=== PATIENT | male | born 1990 | race African-American/Black ===

== ENCOUNTER → 2024-11-20 | Outpatient (CLI) | payer MEDICAID, SELFPAY ==
--- NOTE | 2024-11-20 17:35 | RAD_ITS ---
PROCEDURE: CHEST PA AND LATERAL 11/20/2024 REASON FOR EXAM: ASTHMA TECHNIQUE: CHEST PA AND LATERAL COMPARISON: None. FINDINGS: The lungs are hyperexpanded. Mild bilateral peribronchial interstitial thickening. There is no demonstrated parenchymal abnormality. There is no demonstrated pleural abnormality. Normal heart and pericardium. Normal mediastinum and maeve. Normal visualized pulmonary arteries. Normal visualized aortic arch and descending thoracic aorta. Normal visualized thoracic spine. Normal visualized ribs, clavicles, and shoulders. There is no demonstrated abnormality of the visualized soft tissue structures of the upper abdomen. RAD/Chest PA and Lateral IMPRESSION: Hyperexpanded lungs. Mild bilateral peribronchial interstitial thickening, possibly secondary to hyp eractive airway disease. [facility]
== END | disposition home or self-care (01) ==
LOC: RAD 17:33
PROVIDERS: PCP Family Medicine
DX: J45.901 Unspecified asthma with (acute) exacerbation (principal)
CPT/HCPCS: 71046

== ENCOUNTER → 2024-12-06 | Outpatient (CLI) | payer MEDICAID, SELFPAY | END | disposition home or self-care (01) | PROVIDERS: PCP Family Medicine | DX: J45.909 Unspecified asthma, uncomplicated (principal) | CPT/HCPCS: 94060; 94726; 94729 ==

== ENCOUNTER → 2024-12-16 | Outpatient (CLI) | payer MEDICAID, SELFPAY ==
[2024-12-16 16:23] LABS: Hematocrit 44.6 % (40-54); Hemoglobin 14.9 g/dL (13.0-16.5); Immature Granulocytes Count 0.010 X10^3/uL (0.0-0.0); Mean Corp Hgb Conc 33.4 g/dL (32-36); Mean Corpuscular Volume 82.9 fL (80-94); Mean Platelet Vol. 10.0 fl (6.2-12.0); NRBC Flagged by Analyzer 0 % (0-5); Platelet Count 281 K/mm3 (150-450); RBC Distribution Width CV 13.2 % (11.6-14.6); RBC Distribution Width SD 39.7 fl (35.1-43.9); Red Blood Count 5.38 M/mm3 (4.6-6.2); White Blood Count 4.6 K/mm3 (4.4-11.0)
== END | disposition home or self-care (01) ==
PROVIDERS: PCP Family Medicine; Referring Provider Internal Medicine Critical Care Medicine; Visit Provider Internal Medicine Critical Care Medicine
DX: J45.909 Unspecified asthma, uncomplicated (principal)
CPT/HCPCS: 36415; 82785; 85025; 86003; 86037; 86606

== ENCOUNTER 2025-04-15 03:50 | Emergency (ER) | payer SELFPAY ==
[2025-04-15 03:54] VITALS: BP 142/94; PULSE 68; RESP 18; TEMP 36.6; O2SAT 100; BMI 29.0
--- NOTE | 2025-04-15 04:09 | ED.VIS.DENTA ---
HPI History of Present Illness Chief Complaint: Dental Informant: patient Narrative Narrative: Patient is a 34-year-old male with no significant PMHx presenting with odontalgia and facial discomfort. - Reports a broken tooth on the lower jaw, which occurred while eating soft food (orange chicken or malaysian bah). - Since the incident, has experienced severe pain preventing sleep for 3-4 days. - Describes a sensation of dryness extending from the side of the face to the jaw. - Unable to eat or drink due to pain. - Noted minor bleeding when brushing teeth. - Denies fever, discharge. - No known drug allergies. PFSH PFSH Medical History Alcohol abuse Home Medications ?Medication ?Instructions ?Recorded ?Last Taken ?Type albuterol sulfate 90 mcg/actuation 2 puff inhalation Q4-6H PRN 12/04/24 Unknown History aerosol inhaler (Ventolin HFA) shortness of breath or wheezing multivitamin (Daily Multi-Vitamin 1 tab PO QAM 12/04/24 Unknown History tablet) tiotropium bromide 1.25 2 puff inhalation Q24H #4 grams 12/16/24 Unknown Rx mcg/actuation mist for inhalation (Spiriva Respimat) montelukast 10 mg tablet 10 mg PO QDAY #30 tabs 12/17/24 Unknown Rx (Singulair) budesonide-formoterol HFA 160 2 puff inhalation BID #10.2 grams 01/03/25 Unknown Rx mcg-4.5 mcg/actuation aerosol inhaler (Symbicort) amoxicillin 500 mg tablet 500 mg PO TID #30 tabs 04/15/25 Unknown Rx omeprazole 20 mg capsule,delayed 20 mg PO DAILY 04/15/25 Unknown History release tramadol 50 mg tablet 50 mg PO Q6H PRN pain 3 days #12 04/15/25 Unknown Rx tabs Allergy/AdvReac Type Severity Reaction Status Date / Time No Known Allergies Allergy Verified 04/15/25 03:51 Family History Father Heart disease CVA (cerebral vascular accident) Cancer prostate Mother Hypertension Social History Smoking Status: Current every day smoker tobacco type: cigarettes alcohol intake: never substance use type: former substance user ROS ROS ED Constitutional Constitutional ED: Denies chills or fever(s) Eyes Eyes: Denies change in vision or double vision ENT ENT ED: Reports dental pain; Denies sinus pain or throat swelling Cardiovascular Cardiovascular: Denies chest pain or palpitations Respiratory/Chest Respiratory/Chest: Denies cough or dyspnea Integumentary Denies abscess or rash Neurologic Neurologic: Denies headache(s), paresthesias or weakness EXAM Physical Exam Const Vital Signs: 04/15/25 03:54 Temperature 97.8 F Temperature Source Oral Pulse Rate 68 Respiratory Rate 18 Blood Pressure 142/94 H Blood Pressure Mean 110 Pulse Ox 100 Oxygen Delivery Method Room Air Positive well nourished and well developed General Appearance ED: well developed and NAD HEENT HEENT Narrative: No external swelling or asymmetry. No trismus. Tender tooth #30 which has a filling within it and is fractured posteriorly. No discharge or bleeding. No abscess. Face and Sinus: sinuses nontender Throat: posterior oropharynx normal Eyes PERRL and EOMs intact bilaterally Neck no lymphadenopathy and supple Resp normal respiratory effort Neuro oriented x3 and CN's II-XII intact bilaterally Sensorium / Orientation: alert Gait (Neuro): normal gait Psych mental status grossly normal and thought process normal Skin no rashes or lesions noted and no wounds MDM MDM MDM Narrative Medical decision making narrative: Tooth number 30 has fractured with a posterior defect, and it appears to contain an amalgam filling. The tooth is very tender, with no bleeding or discharge, and there is no evidence of gingivitis, gingival abscess, or external swelling/asymmetry. Antibiotics may be helpful to decrease inflammation, in addition to NSAIDs and pain medication, which I will prescribe. In the meantime, I placed a Cavit temporary filling in the posterior defect. Although my tools were limited, the patient was amenable to this to help reduce his pain before he can see a dentist. Discharge Plan Triage Chief Complaint: Dental ED Provider: Igor Moreau Dx/Rx/DC Orders Clinical Impression: Pain due to dental caries Instructions: ED Dental Cavity Prescriptions: New tramadol 50 mg tablet 50 mg PO Q6H PRN (Reason: pain) 3 Days Qty: 12 0RF amoxicillin 500 mg tablet 500 mg PO TID Qty: 30 0RF No Action albuterol sulfate [Ventolin HFA] 90 mcg/actuation HFA aerosol inhaler 2 puff inhalation Q4-6H PRN (Reason: shortness of breath or wheezing) multivitamin [Daily Multi-Vitamin] Tablet 1 tab PO QAM Spiriva Respimat 1.25 mcg/actuation mist 2 puff inhalation Q24H Qty: 4 3RF montelukast [Singulair] 10 mg tablet 10 mg PO QDAY Qty: 30 3RF omeprazole 20 mg capsule,delayed release(DR/EC) 20 mg PO DAILY budesonide-formoterol [Symbicort] 160-4.5 mcg/actuation HFA aerosol inhaler 2 puff inhalation BID Qty: 10.2 6RF Primary Care Provider: Xiomara Man [facility] Referrals: Dentist,Your [STAFF PHYSICIAN, Dentistry] - As soon as possible Print Language: German Disposition Disposition: Home, Self Care
--- OUTSIDE RECORDS SUMMARY | 2025-04-15 04:17 | XMS RPT_ITS | CCD ---
Author Organization [facility] Care Team Providers Care Candy Rolling Machine Operator Name Role Phone [facility], Other Prima Care Provider Sarai LEAD RADIATION THERAPIST, Vickey Ring Primary Care Provider Sarai LEAD RADIATION THERAPIST, Vickey Ring Primary Care Provider Sarai LEAD RADIATION THERAPISTVickey Primary Care Provider SARAI, VICKEY RING Primary Care Unavailabl e KATHLEEN BELL Attending Unavailable SARAI, VICKEY RING Primary Care Unavailabl e DENISE CALIX Admitting Unavailable DENISE CALIX Referring Unavailable SARAI, VICKEY RING Primary Care Unavailabl e DENISE CALIX Attending Unavailable KATHLEEN BELL Referring Unavailable SARAI, VICKEY RING Primary Care Unavailabl KATHLEEN Agarwal Admitting Unavailable SARAI, VICKEY JHONATHAN Primary Care Unavailabl e SARAI, [facility] Primary Care Unavailabl e SARAI, [facility] Primary Care Unavailabl e Xiomara Man DO Primary Care Provider [phone] Beam COCOA BUTTER FILTER OPERATOR-CSouleymane Attending Provider [phone] Beam COCOA BUTTER FILTER OPERATOR-CSouleymane Referring Provider [phone] Dr. Shawn Mclean DO Attending Provider Xiomara Man DO Referring Provider Dr. Shawn Mclean DO Referring Provider FRANCISCO BEAULIEU Attending Unavailable SARAI, VICKEY JHONATHAN Primary Care UnavailCasandra Moeller Attending Provider Beam VSC, Zebulun Referring Unavailable Magda, Xiomara Primary Care Unavailable Shawn Mclean Attending Unavailable Beam VSC, Zebueda Attending Unavailable Beam VSC, Zebulun Referring Unavailable Magda, Xiomara Primary Care Unavailable Shawn Mclean Attending Unavailable Magda, Xiomara Primary Care Unavailable Magda, Xiomara Referring Unavailable Magda, Xiomara Primary Care Unavailable Magda, Xiomara Referring Unavailable Casandra De La Cruz Attending Unavailable Beam VSC, Zebueda Attending Unavailable Shawn Mclean Attending Unavailable Shawn Mclean Referring Unavailable Magda, Xiomara Primary Care Unavailable Allergies Allergy Classification Reported Allergen(s) Allergy Type Date of Onset Reaction(s) Facility (1 source) Unable to Assess Drug allergy (disorder) 01-17-2025 [facility] Repository Medications Current Medications Medication Drug Class(es) Dates Sig (Normalized) Sig (Original) [id number] 200 actuat albuterol 0.09 mg/actuat metered dose inhaler (20 sources) beta2-Adrenergic Agonist Start: 12-04-2024 Albuterol Sulfate (Ventolin Hfa) 90 mcg/actuation HFA aerosol inhaler Active 2 NMA INHALATION EVERY 4-6 HOURS as needed December 04, 2024 12:00am Start: 07-17-2024 End: 10-15-2024 take 2 puff(s) by inhalation every six hours as needed for wheezing albuterol (Ventolin HFA) 90 mcg/actuation inhaler Indications: Mild persistent asthma without complication Inhale 2 (two) puffs every 6 (six) hours as needed for wheezing or shortness of breath . 18 g 5 07/17/2024 10/15/2024 Active Start: 05-17-2023 End: 05-16-2024 albuterol (PROVENTIL) 2.5 mg /3 mL (0.083 %) nebulizer solution Indications: Mild persistent asthma without complication Take 3 mL (2.5 mg total) by nebulization every 6 (six) hours as needed for wheezing or shortness of breath . 150 mL 5 05/17/2023 Active Start: 05-17-2023 take 2 puff(s) by in halation every six hours as needed for wheezing albuterol (Ventolin HFA) 90 mcg/actuation inhaler Indications: Mild persistent asthma without complication Inhale 2 (two) puffs every 6 (six) hours as needed for wheezing or shortness of breath . 18 g 5 05/17/2023 Active Start: 01-27-2022 End: 01-27-2023 take 2.5 mg by inhalation every six hours as needed for wheezing albuterol (PROVENTIL) 2.5 mg /3 mL (0.083 %) nebulizer solution Take 3 mL (2.5 mg total) by nebulization every 6 (six) hours as needed for wheezing . 75 mL 12 01/27/2022 01/27/2023 Active Start: 01-27-2022 End: 02-26-2022 take 1-2 puff(s) by inhalation every four to six hours as needed for cough albuterol 90 mcg/actuation inhaler 1-2 puffs every 4-6 hours prn cough/wheeze/sob; dispense with spacer . 18 g 2 01/27/2022 Active Start: 04-01-2021 take 2 puff(s) by in halation every six hours as needed for wheezing albuterol (Ventolin HFA) 90 mcg/actuation inhaler Indications: Mild persistent asthma without complication Inhale 2 (two) puffs every 6 (six) hours as needed for wheezing or shortness of breath . 18 g 5 04/01/2021 Active Budesonide-Formoterol (15 sources) Corticosteroid, beta2-Adrenergic Agonist Start: 01-03-2025 Budesonide-Formoterol (Symbicort) 160-4.5 mcg/actuation HFA aerosol inhaler Active 2 NMA INHALATION TWICE A DAY 10.2 6 January 03, 2025 9:37am Start: 12-04-2024 End: 01-03-2025 Budesonide-Formoterol (Symbi kenia) 160-4.5 mcg/actuation HFA aerosol inhaler Discontinued 2 NMA INHALATION TWICE A DAY December 04, 2024 12:00am January 03, 2025 9:37am Start: 12-04-2024 Budesonide-For moterol (Symbicort) 160-4.5 mcg/actuation HFA aerosol inhaler Active 2 NMA INHALATION TWICE A DAY December 04, 2024 12:00am Start: 07-17-2024 take 2 puff(s) by in halation twice daily budesonide-formoteroL (Symbicort) 160-4.5 mcg/actuation inhaler Inhale 2 (two) puffs 2 (two) times a day . 1 each 5 07/17/2024 Active Start: 05-17-2023 End: 05-16-2024 take 2 puff(s) by inhalation twice daily budesonide-formoteroL (Symbicort) 160-4.5 mcg/actuation inhaler Indications: Mild persistent asthma without complication Inhale 2 (two) puffs 2 (two) times a day . 1 each 5 05/17/2023 05/16/2024 Active Start: 05-26-2021 take 2 puff(s) by in halation twice daily budesonide-formoteroL (Symbicort) 160-4.5 mcg/actuation inhaler Inhale 2 (two) puffs 2 (two) times a day . 1 each 5 05/26/2021 Active Start: 05-26-2021 End: 05-26-2022 take 2 puff(s) by inhalation twice daily budesonide-formoteroL (Symbicort) 160-4.5 mcg/actuation inhaler Inhale 2 (two) puffs 2 (two) times a day . 1 each 5 05/26/2021 05/26/2022 Active Start: 03-07-2017 SYMBICORT 160- 4.5 MCG/ACT Aerosol inhaler 24 hr buPROPion hydrochloride 150 mg extended release oral tablet (4 sources) Aminoketone Start: 12-04-2024 take 1 tablet by mouth once daily in the morning Bupropion Hcl (Wellbutrin Xl) 150 mg tablet extended release 24 hr Active 150 mg PO EVERY MORNING December 04, 2024 12:00am 12 hr dextromethorphan hydrobromide 30 mg / guaiFENesin 600 mg extended release oral tablet (1 source) Uncompetitive X-gmrtdf-U-asparta te Receptor Antagonist, Sigma-1 Agonist Start: 01-27-2022 End: 02-06-2022 take 1 tablet by mouth twice daily dextromethorphan-g uaiFENesin (Mucinex DM) 30-600 mg Tb12 Take 1 (one) tablet by mouth 2 (two) times a day for 10 days . 20 tablet 0 01/27/2022 02/06/2022 Active doxycycline hyclate 100 mg oral capsule (1 source) Tetracycline-class Drug Start: 01-17-2022 End: 01-24-2022 take 1 capsule by mouth twice daily doxycycline hyclate (VIBRAMYCIN) 100 MG capsule Indications: Penile discharge , Urethritis Take 1 (one) capsule (100 mg total) by mouth 2 (two) times a day for 7 days . 14 capsule 0 01/17/2022 01/24/2022 Active [id number] 0.3 ml EPINEPHrine 1 mg/ml auto-injector (1 source) alpha-Adrenergic Agonist, beta-Adrenergic Agonist, Catecholamine Start: 01-17-2025 Epinephrine (Epipen 2-Fernandez) 0.3 mg/0.3 mL auto-injector Active 0.3 mg IM every 5 to 15 minutes as needed for anaphylaxis 2 0 January 17, 2025 12:00am Asthma Unspecified asthma, uncomplicated do not exceed 3 doses per episode hydrOXYzine pamoate 50 mg oral capsule (5 sources) Antihistamine Start: 12-04-2024 take 1 capsule by mouth twice daily as needed Hydroxyzine Pamoate 50 mg capsule Active 50 mg PO TWICE A DAY as needed December 04, 2024 12:00am Start: 03-30-2017 take 1 tablet by vernell th every six hours as needed hydrOXYzine HCl 25 MG Tab tablet Take 1 tablet by mouth every 6 hours as needed for Anxiety. 16 tablet 0 03/30/2017 Active ibuprofen 600 mg oral tablet (3 sources) Nonsteroidal Anti-inflammatory Drug Start: 09-28-2020 End: 09-28-2020 take 1 tablet by mouth every six hours as needed ibuprofen 600 MG tablet Take 1 tablet by mouth every 6 hours as needed. 20 tablet 0 09/28/2020 09/28/2020 Discontinued (Reorder) inhalational spacing device inhaler (8 sources) Start: 01-27-2022 inhalational spacing device inhaler Use as instructed . 1 each 2 01/27/2022 Active metroNIDAZOLE 500 mg oral tablet (1 source) Nitroimidazole Antimicrobial Start: 01-17-2022 End: 01-17-2022 take 4 tablets by mouth once metroNIDAZOLE (FLAGYL) 500 MG tablet Indications: Penile discharge , Urethritis Take 4 (four) tablets (2,000 mg total) by mouth once for 1 dose . 4 tablet 0 01/17/2022 01/17/2022 Active montelukast 10 mg oral tablet (2 sources) Leukotriene Receptor Antagonist Start: 12-17-2024 take 1 tablet by mouth once daily Montelukast (Singulair) 10 mg tablet Active 10 mg PO daily 30 December 17, 2024 12:00am Multivitamin (Daily Multi-Vitamin) tablet (4 sources) Start: 12-04-2024 Multivitamin (Daily Multi-Vitamin) tablet Active 1 {tbl} PO EVERY MORNING December 04, 2024 12:00am omeprazole 20 mg delayed release oral capsule (4 sources) Proton Pump Inhibitor Start: 12-04-2024 take 1 capsule by mouth once daily Omeprazole 20 mg capsule,delayed release(DR/EC) Active 20 mg PO daily December 04, 2024 12:00am 12 hr orphenadrine citrate 100 mg extended release oral tablet (3 sources) Muscle Relaxant Start: 09-28-2020 End: 09-28-2020 take 1 tablet by mouth twice daily orphenadrine ER 100 MG Tab SR 12 HR Take 1 tablet by mouth 2 times daily. 14 tablet 0 09/28/2020 09/28/2020 Discontinued (Reorder) Start: 09-28-2020 orphenadrine E R (NORFLEX) tablet SR 100 mg polymyxin b 13565 unt/ml / trimethoprim 1 mg/ml ophthalmic solution (1 source) Dihydrofolate Reductase Inhibitor Antibacterial, Polymyxin-class Antibacterial Start: 03-25-2017 take 1 drop(s) into the eye(s) every four to six hours polymyxin b-trimethoprim 41769-0.1 UNIT/ML-% Solution ophthalmic solution instill 1 drop into left eye every 4 to 6 hours while awake for 7 days 0 03/25/2017 Active predniSONE 20 mg oral tablet (5 sources) Start: 01-27-2022 predniSONE (DELTASONE) 20 MG tablet Take 2 tablets once daily x 5 days with food . 10 tablet 0 01/27/2022 Active Start: 09-28-2020 End: 09-28-2020 take 2 tablets by mouth once daily predniSONE 20 MG tablet Take 2 tablets by mouth daily. 10 tablet 0 09/28/2020 09/28/2020 Discontinued (Reorder) Start: 09-28-2020 predniSONE (DE LTASONE) tablet 40 mg 60 actuat tiotropium 0.82532 mg/actuat inhalation spray (3 sources) Anticholinergic Start: 12-16-2024 take 1.25 ug by inhalation every twenty-four hours Tiotropium [place] (Spiriva Respimat) 1.25 mcg/actuation mist Active 2 NMA INHALATION Q24H 4 3 December 16, 2024 12:00am traZODone hydrochloride 50 mg oral tablet (4 sources) Serotonin Reuptake Inhibitor Start: 12-04-2024 take 1 tablet by mouth at bedtime as needed Trazodone 50 mg tablet Active 50 mg PO AT BEDTIME as needed December 04, 2024 12:00am Completed/Discontinued Medications Medication Drug Class(es) Dates Sig (Normalized) Sig (Original) cefTRIAXone 500 mg injection (2 sources) Cephalosporin Antibacterial Start: 01-17-2022 End: 01-17-2022 cefTRIAXone (ROCEPHIN) injection 500 mg Start: 01-17-2022 End: 01-17-2022 cefTRIAXone (ROCEPHIN) injec tion 500 mg dexamethasone phosphate 10 mg/ml injectable solution (4 sources) Corticosteroid Start: 09-04-2021 End: 09-04-2021 dexamethasone (DECADRON) injection 10 mg Start: 09-04-2021 End: 09-04-2021 dexamethasone (DECADRON) inj ection 10 mg Start: 09-04-2021 End: 09-04-2021 dexAMETHasone sodium phos (P F) injection 10 mg Start: 09-04-2021 End: 09-04-2021 dexAMETHasone sodium phos (P F) injection 10 mg 60 actuat formoterol fumarate 0.005 mg/actuat / mometasone furoate 0.2 mg/actuat metered dose inhaler (3 sources) Corticosteroid, beta2-Adrenergic Agonist End: 01-27-2022 take 2 puff(s) by inhalation twice daily mometasone-formoterol (Dulera) 200-5 mcg/actuation HFAA Inhale 2 puffs 2 (two) times a day . 0 01/27/2022 Discontinued (Therapy completed) Mometasone-For moterol (Dulera) 100-5 mcg/actuation HFA aerosol inhaler (4 sources) Start: 12-04-2024 End: 01-17-2025 Mometasone-Formoterol (Dulera) 100-5 mcg/actuation HFA aerosol inhaler Discontinued 2 NMA INHALATION TWICE A DAY December 04, 2024 12:00am January 17, 2025 2:15pm Start: 12-04-2024 Mometasone-For moterol (Dulera) 100-5 mcg/actuation HFA aerosol inhaler Active 2 NMA INHALATION TWICE A DAY December 04, 2024 12:00am Problems Active Problems Problem Classification Problem Date Documented Da te Episodic/Chronic Anxiety disorders (15 sources) Anxiety disorder, unspecified; Translations: [Anxiety disorder] Onset: 03-30-2017 06-13-2017 Chronic Asthma (20 sources) Mild persistent asthma; Translations: [Mild persistent asthma, uncomplicated] Onset: 06-13-2017 Resolved: 12-13-2017 12-13-2017 Chronic Asthma (2 sources) Asthma Fracture of upper limb (6 sources) Closed fracture of distal phalanx of little finger; Translations: [Nondisplaced fracture of distal phalanx of right little finger, initial encounter for closed fracture] Onset: 10-03-2023 10-03-2023 Episodic Genitourinary symptoms and ill-defined conditions (2 sources) Dysuria; Translations: [Dysuria] Episodic Nonspecific chest pain (1 source) Tight chest; Translations: [Other chest pain] Episodic Other acquired deformities (4 sources) Mallet finger; Translations: [Mallet finger of right finger(s)] 10-03-2023 Episodic Other acquired deformities (2 sources) Mallet finger of right finger(s); Translations: [Mallet finger of right finger(s)] Onset: 10-03-2023 Episodic Other circulatory disease (1 source) Nasal discharge; Translations: [Other specified symptoms and signs involving the circulatory and respiratory systems] Episodic Other connective tissue disease (1 source) Pain in right hand; Translations: [Pain in right hand] 11-24-2022 Episodic Other connective tissue disease (4 sources) Pain in finger of right hand; Translations: [Pain in right finger(s)] 10-03-2023 Episodic Other connective tissue disease (2 sources) Pain in right finger(s); Translations: [Pain in right finger(s)] Onset: 10-03-2023 Episodic Other lower respiratory disease (1 source) Cough; Translations: [Cough] Episodic Other nutritional; endocrine; and metabolic disorders (2 sources) Other disorders of plasma-protein metabolism, not elsewhere classified; Translations: [Other disorders of plasma-protein metabolism, not elsewhere classified] Onset: 06-01-2023 Chronic Substance-related disorders (20 sources) Nicotine dependence; Translations: [Nicotine dependence, unspecified, uncomplicated] Onset: 06-13-2017 06-13-2017 Chronic Urinary tract infections (1 source) Urethritis; Translations: [Other urethritis] Episodic Past or Other Problems Problem Classification Problem Date Documented Da te Episodic/Chronic Cardiac dysrhythmias (2 sources) Palpitations; Translations: [Palpitations] Onset: 03-30-2017 Episodic Immunizations and screening for infectious disease (5 sources) Suspected disease caused by 2019-nCoV; Translations: [Suspected COVID-19 virus infection] Onset: 07-26-2024 Episodic Mood disorders (2 sources) Mood disorders Onset: 07-17-2024 07-17-2024 Other connective tissue disease (2 sources) Pain in right hand; Translations: [Pain in right hand] Onset: 11-24-2022 Episodic Other gastrointestinal disorders (10 sources) Heartburn; Translations: [Heartburn] Onset: 06-13-2017 06-13-2017 Episodic Spondylosis; intervertebral disc disorders; other back problems (12 sources) Sciatica; Translations: [Sciatica, left side] Onset: 12-13-2017 Episodic Results Test Name Value Interpretation Reference Range Facility Pulmonary Visit Reporton Pulmonary Visit Report [facility] Pulmonary Medicine of [address] [place] [address] OFFICE VISIT Date of Service: 01/17/25 MR#: [id number] Acct: [id number] Name: MELANIE LAGOS Rep #: [id number] : 1990 Provider: Casandra De La Cruz NP Age/Sex: 34/M Location: [facility].PM[facility] Status: Signed Assessment and Plan Assessment and Plan (1) Asthma: Status: Chronic Qualifiers: Asthma severity: moderate Asthma persistence: persistent Asthma complication type: uncomplicated Qualified Code(s): J45.40 - Moderate persistent asthma, uncomplicated Plan: The patient presented today for the evaluation of asthma, initially diagnosed in childhood, which has been suboptimally controlled over the last 3 months. The patient is currently utilizing Symbicort and has received excellent benefit with adding Spiriva. He does have albuterol HFA and nebulized at home for symptom relief and is encouraged to continue to use these on an as-needed basis. He is encouraged to use singular as well for worsening allergy symptoms. Given the high sensitivities on the recent RAST panel I have referred to [facility] at this time. CBC with differential did not show the presence of peripheral eosinophilia, IgE was not elevated, and Aspergillus antibodies, ANCA were within normal limits. Alpha-1 screening was negative. The patient should notify this practice if he has worsening respiratory symptoms. NIOX is not elevated today. There is no need to utilize oral prednisone at this time. He will be provided with epi pen due to his potential for trigger with upcoming canoe trip. (2) Nicotine dependence, cigarettes, uncomplicated: Status: Chronic Plan: Complete smoking cessation is encouraged today, he is not quite ready to proceed at this time. I have also encouraged him to avoid the cigarettes that he knows worsen his respiratory symptoms. He understands that this practice is willing to assist him when he is ready to quit smoking. Orders: Orders NIOX Today J45.909 - Unspecified asthma, uncomplicated Referrals Allergy Immunology J45.909 - Unspecified asthma, uncomplicated Medications: New epinephrine (EpiPen 2-Fernandez) do not exceed 3 doses per episode 0.3 mg (0.3 mL) IM Q5-15M PRN 2 ea 0RF anaphylaxis J45.909 - Unspecified asthma, uncomplicated Plan Details Follow Up: 4 to 6 months (LMR) HPI HPI Comments Details: The patient is a 34-year-old male who presents to the office today for follow-up of asthma. He is ambulatory currently on room air. Since last office visit he has not required oral prednisone or antibiotics for his breathing. He has not been seen in urgent care or has not had any hospitalizations since last follow-up. The patient reported that he was initially diagnosed with asthma sometime around 5 years old. While his asthma was previously controlled, approximately 3 months ago, the patient became ill with a questionable cold, and since that time, he has been struggling from a respiratory perspective. The patient recently relocated from [place] to [place]. He does not currently keep any animals as pets in his home environment. 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 The patient has an approximate 9-pack-year smoking history and continues to smoke 0.25 packs of cigarettes per day. In addition to his personal smoking history, he did grow up in a smoking household. The patient also indicated that he previously used to smoke marijuana daily, but has since quit. He does report a history of seasonal allergic rhinitis. He denies shortness of breath currently. He denies cough. He reports that he will wheeze if he smokes too many cigarettes. He indicates that chest tightness will occur at random when he is smoking. He is currently smoking a pack every 2 to 3 days. He is using Spiriva and Symbicort. He has not required his rescue inhaler but if he smokes too many cigarettes he will have chest tightness and will use it at that time. At last visit Spiriva was added to his regimen and he reports a significant improvement in his shortness of breath since adding Spiriva. He has been able to reduce his frequency of albuterol HFA. He does not have difficulty with side effects from Symbicort. He is drinking water after using the inhaler. He does use Singulair on occasion but reports that it dries up his sinus passages when he utilizes this medication. He has Claritin to use as needed. He is currently in sobriety for the last 6 months and that he will soon consider smoking cessation. He was last on prednisone for breathing in October. Prior to that he was struggling with his breathing from August to October. Pulmonary function studies completed in November 2024 demonstrated a partially reversible very severe large airways obstructive ventilatory def (more content not included)... Normal [facility] Allergen Resp. Area 5on 11-27 ALTERNARIA TEN 8.68 kU/L Abnormal Class IV [facility] Comment on above: Order Comment: Reaso n for Exam: ASthma Performed By: #### L 5500.0700, L3300.1200, L3500.3600, L3200.1600, L100.0100 #### [facility] Laboratory [address] [place], [address] RAMIRO, WHITE 25.70 kU/L Abnormal Class V [facility] Comment on above: Order Comment: Reaso n for Exam: ASthma Performed By: #### L 5500.0700, L3300.1200, L3500.3600, L3200.1600, L100.0100 #### [facility] Laboratory [address] [place], [address] ASPERGILLUS FUM 1.88 kU/L Abnormal Class III [facility] Comment on above: Order Comment: Reaso n for Exam: ASthma Performed By: #### L 5500.0700, L3300.1200, L3500.3600, L3200.1600, L100.0100 #### [facility] Laboratory [address] [place], [place], [facility] BERMUDA GRASS 14.10 kU/L Abnormal Class IV [facility] Comment on above: Order Comment: Reaso n for Exam: ASthma Performed By: #### L 5500.0700, L3300.1200, L3500.3600, L3200.1600, L100.0100 #### [facility] Laboratory [address] [place], [address] BIRCH 51.00 kU/L Abnormal Class V [facility] Comment on above: Order Comment: Reaso n for Exam: ASthma Performed By: #### L 5500.0700, L3300.1200, L3500.3600, L3200.1600, L100.0100 #### [facility] Laboratory [address] [place], [address] BLACK WALNUT 40.40 kU/L Abnormal Class V [facility] Comment on above: Order Comment: Reaso n for Exam: ASthma Performed By: #### L 5500.0700, L3300.1200, L3500.3600, L3200.1600, L100.0100 #### [facility] Laboratory [address] [place], [place], [id number] CAT HAIR/DANDER 41.40 kU/L Abnormal Class V [facility] Comment on above: Order Comment: Reaso n for Exam: ASthma Performed By: #### L 5500.0700, L3300.1200, L3500.3600, L3200.1600, L100.0100 #### [facility] Laboratory [address] [place], [place], [id number] CLADOSPOR HERB 0.50 kU/L Abnormal Class I [facility] Comment on above: Order Comment: Reaso n for Exam: ASthma Performed By: #### L 5500.0700, L3300.1200, L3500.3600, L3200.1600, L100.0100 #### [facility] Laboratory [address] [place], [place], [id number] COCKROACH,AMER <0.10 Normal Class 0 [facility] Comment on above: Order Comment: Reaso n for Exam: ASthma Performed By: #### L 5500.0700, L3300.1200, L3500.3600, L3200.1600, L100.0100 #### [facility] Laboratory [address] [place], [place], [id number] COMMENT Comment Normal . [facility] Comment on above: Order Comment: Reaso n for Exam: ASthma Result Comment: Marycarmen cheema of Specific IgE Class Description of Class ----- < 0.10 0 Negative 0.10 - 0.31 0/I Equivocal/Low 0.32 - 0.55 I Low 0.56 - 1.40 II Moderate 1.41 - 3.90 III High 3.91 - 19.00 IV Very High 19.01 - 100.00 V Very High >100.00 Very High Performed By: #### L 5500.0700, L3300.1200, L3500.3600, L3200.1600, L100.0100 #### [facility] [address] [place], [address] COTTONWOOD 7.86 kU/L Abnormal Class IV [facility] Comment on above: Order Comment: Reaso n for Exam: ASthma Performed By: #### L 5500.0700, L3300.1200, L3500.3600, L3200.1600, L100.0100 #### [facility] [address] [place], [address] D FARINAE MITE 0.43 kU/L Abnormal Class I [facility] Comment on above: Order Comment: Reaso n for Exam: ASthma Performed By: #### L 5500.0700, L3300.1200, L3500.3600, L3200.1600, L100.0100 #### [facility] [address] [place], [place], [facility] D PTERONYSSINUS 0.41 kU/L Abnormal Class I [facility] Comment on above: Order Comment: Reaso n for Exam: ASthma Performed By: #### L 5500.0700, L3300.1200, L3500.3600, L3200.1600, L100.0100 #### [facility] [address] [place], [place], [facility] DOG EPITHELIA 7.61 kU/L Abnormal Class IV [facility] Comment on above: Order Comment: Reaso n for Exam: ASthma Performed By: #### L 5500.0700, L3300.1200, L3500.3600, L3200.1600, L100.0100 #### [facility] [address] [place], [address] ELM,AMER WHITE 19.10 kU/L Abnormal Class V [facility] Comment on above: Order Comment: Reaso n for Exam: ASthma Performed By: #### L 5500.0700, L3300.1200, L3500.3600, L3200.1600, L100.0100 #### [facility] [address] [place], [address] IMMUNOGLOB E 334 IU/mL Normal 6-495 [facility] Comment on above: Order Comment: Reaso n for Exam: ASthma Performed By: #### L 5500.0700, L3300.1200, L3500.3600, L3200.1600, L100.0100 #### [facility] [address] [place], [address] MAPLE/BOX ELDER 17.30 kU/L Abnormal Class IV [facility] Comment on above: Order Comment: Reaso n for Exam: ASthma Performed By: #### L 5500.0700, L3300.1200, L3500.3600, L3200.1600, L100.0100 #### [facility] [address] [place], [address] [place] 3.77 kU/L Abnormal Class III [facility] Comment on above: Order Comment: Reaso n for Exam: ASthma Performed By: #### L 5500.0700, L3300.1200, L3500.3600, L3200.1600, L100.0100 #### [facility] [address] [place], [address] Mouse Urine <0.10 Normal Class 0 [facility] Comment on above: Order Comment: Reaso n for Exam: ASthma Performed By: #### L 5500.0700, L3300.1200, L3500.3600, L3200.1600, L100.0100 #### [facility] [address] [place], [address] MULBERRY,WHITE 6.27 kU/L Abnormal Class IV [facility] Comment on above: Order Comment: Reaso n for Exam: ASthma Performed By: #### L 5500.0700, L3300.1200, L3500.3600, L3200.1600, L100.0100 #### [facility] [address] [place], [address] OAK, WHITE 34.40 kU/L Abnormal Class V [facility] Comment on above: Order Comment: Reaso n for Exam: ASthma Performed By: #### L 5500.0700, L3300.1200, L3500.3600, L3200.1600, L100.0100 #### [facility] [address] [place], [address] PECAN 39.60 kU/L Abnormal Class V [facility] Comment on above: Order Comment: Reaso n for Exam: ASthma Performed By: #### L 5500.0700, L3300.1200, L3500.3600, L3200.1600, L100.0100 #### [facility] [address] [place], [address] PEN NOTATUM 0.34 kU/L Abnormal Class I [facility] Comment on above: Order Comment: Reaso n for Exam: ASthma Performed By: #### L 5500.0700, L3300.1200, L3500.3600, L3200.1600, L100.0100 #### [facility] [address] [place], [address] PIGWEED, ROUGH 10.10 kU/L Abnormal Class IV [facility] Comment on above: Order Comment: Reaso n for Exam: ASthma Performed By: #### L 5500.0700, L3300.1200, L3500.3600, L3200.1600, L100.0100 #### [facility] [address] [place], [address] RAGWEED SH/COM 28.70 kU/L Abnormal Class V [facility] Comment on above: Order Comment: Reaso n for Exam: ASthma Performed By: #### L 5500.0700, L3300.1200, L3500.3600, L3200.1600, L100.0100 #### [facility] [address] [place], [address] NAURUAN THISTLE 4.09 kU/L Abnormal Class IV [facility] Comment on above: Order Comment: Reaso n for Exam: ASthma Performed By: #### L 5500.0700, L3300.1200, L3500.3600, L3200.1600, L100.0100 #### [facility] [address] [place], [place], [id number] SHEEP SORREL 12.40 kU/L Abnormal Class IV [facility] Comment on above: Order Comment: Reaso n for Exam: ASthma Result Comment: Perf ormed at: [facility] [address] [id number] Garbage Stoker: Korin Chan MD, Phone: [phone] Performed By: #### L 5500.0700, L3300.1200, L3500.3600, L3200.1600, L100.0100 #### [facility] [address] [place], [place], [id number] SYCAMORE, AMER 9.69 kU/L Abnormal Class IV [facility] Comment on above: Order Comment: Reaso n for Exam: ASthma Performed By: #### L 5500.0700, L3300.1200, L3500.3600, L3200.1600, L100.0100 #### [facility] [address] [place], [place], [id number] SARMAD GRASS 18.70 kU/L Abnormal Class IV [facility] Comment on above: Order Comment: Reaso n for Exam: ASthma Performed By: #### L 5500.0700, L3300.1200, L3500.3600, L3200.1600, L100.0100 #### [facility] [address] [place], [place], [id number] ANCAon 12-21-2024 Atypical pANCA <1:20 Normal Neg:<1:20 [facility] Comment on above: Result Comment: The atypical pANCA pattern has been observed in a significant percentage of patients with ulcerative colitis, primary sclerosing cholangitis and autoimmune hepatitis. Performed By: #### L 5500.0700, L3300.1200, L3500.3600, L3200.1600, L100.0100 #### [facility] [address] [place], [address] Cytoplasmic Ab <1:20 Normal Neg:<1:20 [facility] Comment on above: Performed By: #### L 5500.0700, L3300.1200, L3500.3600, L3200.1600, L100.0100 #### [facility] [address] [place], [address] Perinuclear Ab. <1:20 Normal Neg:<1:20 [facility] Comment on above: Result Comment: The presence of positive fluorescence exhibiting P-ANCA or C-ANCA patterns alone is not specific for the diagnosis of Adam's Granulomatosis (WG) or microscopic polyangiitis. Decisions about treatment should not be based solely on ANCA IFA results. The [employer] ANCA [employer] Consensus recommends follow up testing of positive sera with both MT- 3 and MPO-ANCA enzyme immunoassays. As many as 5% serum samples are positive only by EIA. Ref. AM J Clin Pathol 1999;111:507-513. Performed By: #### L 5500.0700, L3300.1200, L3500.3600, L3200.1600, L100.0100 #### [facility] [address] [place], [address] Aspergillus Antibodieson Asp. flavus Negative Normal Neg:<1:1 [facility] Comment on above: Performed By: #### L 5500.0700, L3300.1200, L3500.3600, L3200.1600, L100.0100 #### [facility] [address] [place], [address] Asp. fumigatus Negative Normal Neg:<1:1 [facility] Comment on above: Performed By: #### L 5500.0700, L3300.1200, L3500.3600, L3200.1600, L100.0100 #### [facility] [address] [place], [address] Asp. niger Negative Normal Neg:<1:1 [facility] Comment on above: Performed By: #### L 5500.0700, L3300.1200, L3500.3600, L3200.1600, L100.0100 #### [facility] [address] [place], [place], [id number] Immunoglobulin Jakub 5 IMMUNOGLOB E QN 393 IU/mL Normal 6-495 [facility] Comment on above: Result Comment: Perf ormed at: - [facility] [address] [id number] Garbage Stoker: Daniel Wolfe PhD, Phone: [phone] Performed at: - [facility] [id number] Garbage Stoker: Korin Chan MD, Phone: [phone] Performed By: #### L 5500.0700, L3300.1200, L3500.3600, L3200.1600, L100.0100 #### [facility] [address] [place], [place], [id number] Absolute lymphocyte countOrd ered By: Shawn Mclean on 12-16-2024 Lymphocytes Auto (Unsp spec) [#/Vol] 1.47 10*3/uL 0.83-4.51 [facility] Absolute neutrophil countOrd ered By: Shawn Mclean on 12-16-2024 Neutrophils (Bld) [#/Vol] 2.5 10*3/uL 2.0-7.7 [facility] Automated lymphocyte count a s percentage of total leukocytesOrdered By: hSawn Mclean on 12-16-2024 Lymphocytes/100 WBC Auto (Unsp spec) 32.2 % 19-41 [facility] Basophil percentageOrdered B y: Shawn Mclean on 12-16-2024 Basophils/100 WBC (Bld) 0.9 % 0-1 [facility] CBC W/Diff, Automatedon 11-27 Absolute Lymph 1.47 X10 3/uL Normal 0.83-4.51 [facility] Comment on above: Performed By: #### L 5500.0700, L3300.1200, L3500.3600, L3200.1600, L100.0100 #### [facility] [address] [place], [address] Absolute Neut 2.5 X10 3/uL Normal 2.0-7.7 [facility] Comment on above: Performed By: #### L 5500.0700, L3300.1200, L3500.3600, L3200.1600, L100.0100 #### [facility] [address] [place], [address] Basophils/100 WBC (Bld) 0.9 % Normal 0-1 [facility] Comment on above: Performed By: #### L 5500.0700, L3300.1200, L3500.3600, L3200.1600, L100.0100 #### [facility] [address] [place], [address] Eosinophils/100 WBC (Bld) 2.8 % Normal 0-5 [facility] Comment on above: Performed By: #### L 5500.0700, L3300.1200, L3500.3600, L3200.1600, L100.0100 #### [facility] [address] [place], [address] Erythrocyte distribution width (RBC) [Ratio] 13.2 % Normal 11.6-14.6 [facility] Comment on above: Performed By: #### L 5500.0700, L3300.1200, L3500.3600, L3200.1600, L100.0100 #### [facility] [address] [place], [address] Hematocrit (Bld) [Volume fraction] 44.6 % Normal 40-54 [facility] Comment on above: Performed By: #### L 5500.0700, L3300.1200, L3500.3600, L3200.1600, L100.0100 #### [facility] [address] [place], [address] Hemoglobin (Bld) [Mass/Vol] 14.9 g/dL Normal 13.0-16. 5 [facility] Comment on above: Performed By: #### L 5500.0700, L3300.1200, L3500.3600, L3200.1600, L100.0100 #### [facility] [address] [place], [address] IG% 0.200 Normal 0.0-0.9 [facility] Comment on above: Result Comment: IG% - Immature Granulocytes (promyelocytes, myelocytes and metamyelocytes) > 1% indicates that a LEFT SHIFT is Present. Performed By: #### L 5500.0700, L3300.1200, L3500.3600, L3200.1600, L100.0100 #### [facility] [address] [place], [address] Lymphocytes/100 WBC (Bld) 32.2 % Normal 19-41 [facility] Comment on above: Performed By: #### L 5500.0700, L3300.1200, L3500.3600, L3200.1600, L100.0100 #### [facility] [address] [place], [address] MCH (RBC) [Entitic mass] 27.7 pg Normal 27.0-32.0 [facility] Comment on above: Performed By: #### L 5500.0700, L3300.1200, L3500.3600, L3200.1600, L100.0100 #### [facility] [address] [place], [address] MCHC (RBC) [Mass/Vol] 33.4 g/dL Normal 32-36 [facility] Comment on above: Performed By: #### L 5500.0700, L3300.1200, L3500.3600, L3200.1600, L100.0100 #### [facility] [address] [place], [address] MCV (RBC) [Entitic vol] 82.9 fL Normal 80-94 [facility] Comment on above: Performed By: #### L 5500.0700, L3300.1200, L3500.3600, L3200.1600, L100.0100 #### [facility] [address] [place], [address] Monocytes/100 WBC (Bld) 10.1 % High 0-10 [facility] Comment on above: Performed By: #### L 5500.0700, L3300.1200, L3500.3600, L3200.1600, L100.0100 #### [facility] [address] [place], [address] Neutrophils/100 WBC (Bld) 53.8 % Normal 47-70 [facility] Comment on above: Performed By: #### L 5500.0700, L3300.1200, L3500.3600, L3200.1600, L100.0100 #### [facility] [address] [place], [address] Nucleated RBC (Bld) [#/Vol] 0 10*3/uL Normal 0-5 [facility] Comment on above: Performed By: #### L 5500.0700, L3300.1200, L3500.3600, L3200.1600, L100.0100 #### [facility] [address] [place], [address] Platelet mean volume (Bld) [Entitic vol] 10.0 fL Normal 6.2-12.0 [facility] Comment on above: Performed By: #### L 5500.0700, L3300.1200, L3500.3600, L3200.1600, L100.0100 #### [facility] [address] [place], [address] Platelets (Bld) [#/Vol] 281 10*3/uL Normal 150-450 [facility] Comment on above: Performed By: #### L 5500.0700, L3300.1200, L3500.3600, L3200.1600, L100.0100 #### [facility] [address] [place], [address] RBC (Bld) [#/Vol] 5.38 10*6/uL Normal 4.6-6.2 [facility] Comment on above: Performed By: #### L 5500.0700, L3300.1200, L3500.3600, L3200.1600, L100.0100 #### [facility] [address] [place], [address] RDW SD 39.7 fl Normal 35.1-43.9 [facility] Comment on above: Performed By: #### L 5500.0700, L3300.1200, L3500.3600, L3200.1600, L100.0100 #### [facility] [address] [place], [address] WBC (Bld) [#/Vol] 4.6 10*3/uL Normal 4.4-11.0 [facility] Comment on above: Performed By: #### L 5500.0700, L3300.1200, L3500.3600, L3200.1600, L100.0100 #### [facility] [address] [place], [address] Eosinophil percentageOrdered By: Shawn Mclean on 12-16-2024 Eosinophils/100 WBC (Bld) 2.8 % 0-5 [facility] Erythrocyte distribution wid th ratioOrdered By: Shawn Mclean on 12-16-2024 Erythrocyte distribution width (RBC) [Ratio] 13.2 % 11.6-14.6 [facility] Erythrocyte distribution wid th standard deviationOrdered By: Shawn Mclean on 12-16-2024 Erythrocyte distribution width (RBC) [Ratio] 39.7 fl 35.1-43.9 [facility] Hematocrit Auto (Bld) [Volum e fraction]Ordered By: Shawn Mclean on 12-16-2024 Hematocrit (Bld) [Volume fraction] 44.6 % 40-54 [facility] Hemoglobin measurementOrdere d By: Shawn Mclean on 12-16-2024 Hemoglobin (Bld) [Mass/Vol] 14.9 g/dL 13.0-16. 5 [facility] IgEOrdered By: Shawn Mclean o n 12-16-2024 IgE 334 IU/mL 6-495 [facility] Immature granulocytes/100 WB C Auto (Bld)Ordered By: Shawn Mclean on 12-16-2024 Immature granulocytes/100 WBC (Bld) 0.200 % 0.0-0.9 [facility] Comment on above: IG% - Immature Granu locytes (promyelocytes, myelocytes and metamyelocytes) > 1% indicates that a LEFT SHIFT is Present. MCV (mean corpuscular volume ) determinationOrdered By: Shawn Mclean on 12-16-2024 MCV (RBC) [Entitic vol] 82.9 fL 80-94 [facility] Mean corpuscular hemoglobin (MCH) determinationOrdered By: Shawn Mclean on 12-16-2024 MCH (RBC) [Entitic mass] 27.7 pg 27.0-32.0 [facility] Mean corpuscular hemoglobin concentration (MCHC) determinationOrdered By: Shawn Mclean 12-16-2024 MCHC (RBC) [Mass/Vol] 33.4 g/dL 32-36 [facility] Mean platelet volume determi nationOrdered By: Shawn Mclean 12-16-2024 Platelet mean volume (Bld) [Entitic vol] 10.0 fL 6.2-12.0 [facility] Monocyte percentageOrdered B y: Shawn Mclean on 12-16-2024 Monocytes/100 WBC (Bld) 10.1 % High 0-10 [facility] Neutrophil percentageOrdered By: Shawn Mclean on 12-16-2024 Neutrophils/100 WBC (Bld) 53.8 % 47-70 [facility] No Panel InformationOrdered By: Shawn Mclean on 12-16-2024 RAST Comment Comment . [facility] Comment on above: Levels of Specific I gE Class Description of Class ----- < 0.10 0 Negative 0.10 - 0.31 0/I Equivocal/Low 0.32 - 0.55 I Low 0.56 - 1.40 II Moderate 1.41 - 3.90 III High 3.91 - 19.00 IV Very High 19.01 - 100.00 V Very High >100.00 Very High Nucleated red blood cell per centageOrdered By: Shawn Mclean on 12-16-2024 Nucleated RBC/100 WBC (Bld) [Ratio] 0 % 0-5 [facility] Platelet countOrdered By: Anderson on 12-16-2024 Platelets (Bld) [#/Vol] 281 10*3/uL 150-450 [facility] Pulmonary Visit Reporton Pulmonary Visit Report [facility] [place] [address] [place] [address] OFFICE VISIT Date of Service: 12/16/24 MR#: [id number] Acct: [id number] Name: MELANIE LAGOS Rep #: [id number] : 1990 Provider: Dr. Shawn Mclean DO Age/Sex: 34/M Location: [facility] Status: Signed Assessment and Plan Assessment and Plan (1) Asthma: Status: Chronic Plan: The patient presented today for the evaluation of asthma, initially diagnosed in childhood, which has been suboptimally controlled over the last 3 months. The patient is currently utilizing Symbicort and as needed albuterol, but reports frequent use of his rescue inhaler to achieve additional symptom relief. The patient does have a normal nitric oxide level at today's office visit. However, in light of his ongoing symptoms, we will plan to start him on Spiriva Respimat in addition to his Symbicort. Daily Singulair will also be initiated. In the interim, we will obtain CBC with differential to evaluate for peripheral eosinophilia, along with IgE, Aspergillus antibodies, ANCA and RAST profile. Lastly, given the pattern noted on PFTs, alpha-1 screening will also be completed today. The patient will have short interval follow-up in approximately 1 month to discuss the results of his testing and assess his symptom response to therapy. Result: Oral exhaled NO (ppb): 9 Normal: 5-20 ppb (Adult) High Normal/Increased: 20-35 ppb (Adult). Moderately raised exhaled nitric oxide may indicate underlying inflammation, but notes that cold and influenza can raise exhaled nitric oxide in some patients have higher baseline levels than others. High: >35 ppb (Adult). Indicative of ongoing eosinophilic inflammation. Symptomatic patient likely to respond to steroids. Possible causes include: Poor compliance, recent allergen exposure, steroid dose inadequate, and steroid resistance. (2) Nicotine dependence, cigarettes, uncomplicated: Status: Chronic Plan: I personally spent 4 minutes discussing the deleterious effects of continued tobacco use with the patient, including modalities which could be utilized to achieve a smoke-free lifestyle. Orders: Orders Aspergillus Antibodies 12/16/24 J45.909 - Unspecified asthma, uncomplicated CBC W/Diff, Automated 12/16/24 J45.909 - Unspecified asthma, uncomplicated Immunoglobulin E 12/16/24 J45.909 - Unspecified asthma, uncomplicated ANCA 12/16/24 J45.909 - Unspecified asthma, uncomplicated Allergen Resp. Area 5 12/16/24 J45.909 - Unspecified asthma, uncomplicated NIOX 12/16/24 J45.909 - Unspecified asthma, uncomplicated Alpha One Screening Test 12/16/24 J45.909 - Unspecified asthma, uncomplicated Medications: New tiotropium bromide 1.25 mcg/actuation (Spiriva Respimat) 2 puffs inhalation Q24H 4 grams 3RF HPI HPI Comments Details: The patient is a 34-year-old male who presents to the clinic today in referral for the evaluation of asthma. The patient reported that he was initially diagnosed with asthma sometime around 5 years old. While his asthma was previously controlled, approximately 3 months ago, the patient became ill with a questionable cold, and since that time, he has been struggling from a respiratory perspective. The patient recently relocated from [place] to [place]. He is currently prescribed Symbicort and as needed albuterol. He indicated that he is utilizing his rescue inhaler on a near daily basis. His current symptoms include shortness of breath and intermittent chest tightness. He does not currently keep any animals as pets in his home environment. 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 The patient has an approximate 9-pack-year smoking history and continues to smoke 0.25 packs of cigarettes per day. In addition to his personal smoking history, he did grow up in a smoking household. The patient also indicated that he previously used to smoke marijuana daily, but has since quit. He does report a history of seasonal allergic rhinitis. He was last treated with corticosteroids approximately 1 month ago. He denies any fevers, chills or night sweats. 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 Intake Vital Signs 12/16/24 11:19 Height 6 ft Weight: 218 lb BMI 29.5 BP 126/87 H Blood Pressure Location Lt brachial Position Sitting Respiration 16 Pulse 71 Pulse Source Monitor Temp 97.5 F L Temperature Source Temporal Artery Pulse Oximetry (%) 97 Oxygen Delivery Method room air Intake Visit Reasons: Asthma Principal Bioinformatics Specialist Required: No DME Vendor: N/a Accompanied by: Self (more content not included)... Normal [facility] RBC Auto (Bld) [#/Vol]Ordere d By: Shawn Mclean on 12-16-2024 RBC (Bld) [#/Vol] 5.38 10*6/uL 4.6-6.2 [facility] Serum Citizen Of [place] sycamore IgE antibody assay (units/volume)Ordered By: Shawn Mclean on 12-16-2024 Citizen [place] IgE Qn (S) 9.69 kU/L High Class IV [facility] Serum Aspergillus flavus ant ibody detection by immunodiffusionOrdered By: Shawn Mclean on 12-16-2024 A. flavus Ab Immune diff Ql (S) Negative Neg:<1:1 [facility] Serum Aspergillus fumigatus IgE antibody assay (units/volume)Ordered By: Shawn Mclean on 12-16-2024 A. fumigatus IgE Qn (S) 1.88 kU/L High Class III [facility] Serum Aspergillus fumigatus antibody detection by immunodiffusionOrdered By: Shawn Mclean on 12-16-2024 A. fumigatus Ab Immune diff Ql (S) Negative Neg:<1:1 [facility] Serum Aspergillus niger anti body detection by immunodiffusionOrdered By: Shawn Mclean on 12-16-2024 A. niger Ab Immune diff Ql (S) Negative Neg:<1:1 [facility] Serum Bermuda grass IgE anti body assay (units/volume)Ordered By: Shawn Mclean on 12-16-2024 Bermuda grass IgE Qn (S) 14.10 kU/L High Class IV [facility] Serum Cladosporium herbarum IgE antibody assay (units/volume)Ordered By: Shawn Mclean on 12-16-2024 C. herbarum IgE Qn (S) 0.50 kU/L High Class I [facility] Serum Dermatophagoides ptero nyssinus specific IgE antibody assay (units/volume)Ordered By: Shawn Mclean on 12-16-2024 house dust mite IgE Qn (S) 0.41 kU/L High Class I [facility] Serum Fraxinus americana IgE antibody assay (units/volume)Ordered By: Shawn Mclean on 12-16-2024 White Ramiro IgE Qn (S) 25.70 kU/L High Class V [facility] Serum Rumex acetosella IgE a ntibody assay (units/volume)Ordered By: Shawn Mclean on 12-16-2024 [place] IgE Qn (S) 12.40 kU/L High Class IV [facility] Comment on above: Performed at: [address] [id number] Director: Korin Chan MD, Phone: [phone] Serum black walnut IgE antib nam assay (units/volume)Ordered By: Shawn Mclean on 12-16-2024 Black [place] IgE Qn (S) 40.40 kU/L High Class V [facility] Serum cat dander specific Ig E antibody assayOrdered By: Shawn Mclean on 12-16-2024 Serum cat dander specific IgE antibody assay 41.40 kU/L High Class V [facility] Serum classic neutrophil cyt oplasmic antibody assay (units/volume)Ordered By: Shawn Mclean on 12-16-2024 Neutrophil cytoplasmic Ab.classic Qn (S) <1:20 titer Neg:<1:20 [facility] Serum cottonwood IgE antibod y assay (units/volume)Ordered By: Shawn Mclean on 12-16-2024 Arthur IgE Qn (S) 7.86 kU/L High Class IV [facility] Serum dog epithelium IgE ant ibody assay (units/volume)Ordered By: Shawn Mclean on 12-16-2024 Dog epithelium IgE Qn (S) 7.61 kU/L High Class IV [facility] Serum perinuclear neutrophil cytoplasmic antibody titer by immunofluorescenceOrdered By: Shawn Mclean on 12-16-2024 Neutrophil cytoplasmic Ab.perinuclear IF (S) [Titer] <1:20 titer Neg:<1:20 [facility] Comment on above: The presence of posi tive fluorescence exhibiting P-ANCA orC-ANCA patterns alone is not specific for the diagnosis ofWegener's Granulomatosis (WG) or microscopic polyangiitis.Decisions about treatment should not be based solely onANCA IFA results. The International ANCA Group Consensusrecommends follow up testing of positive sera with both MT-3 and MPO-ANCA enzyme immunoassays. As many as 5% serumsamples are positive only by EIA. Ref. AM J Clin Taymoh0179;111:507-513. Serum sarmad IgE antibody a ssay (units/volume)Ordered By: Shawn Mclean on 12-16-2024 Sarmad IgE Qn (S) 18.70 kU/L High Class IV [facility] Serum white elm IgE antibody assay (units/volume)Ordered By: Shawn Mclean on 12-16-2024 White [place] IgE Qn (S) 19.10 kU/L High Class V [facility] Serum white mulberry IgE ant ibody assay (units/volume)Ordered By: Shawn Mclean on 12-16-2024 White mulberry IgE Qn (S) 6.27 kU/L High Class IV [facility] White blood cell (WBC) count Ordered By: Shawn Mclean on 12-16-2024 WBC (Bld) [#/Vol] 4.6 10*3/uL 4.4-11.0 [facility] Chest PA and Lateralon 11-20 Chest PA and Lateral [facility] Services [address] [place], [place] [address] Chest PA and Lateral MR#: [id number] Acct: [id number] Name: MELANIE LAGOS Rep #: [id number] : 1990 M 34 From: Arti taylor MD PCP: Xiomara Man DO Status: REG CLI Study: Chest PA and Lateral Date of Exam: 11/20/24 Exam# [id number] Ordering Dr: Souleymane Awad [facility] [place] 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 FINDINGS: The lungs are hyperexpanded. Mild bilateral peribronchial interstitial thickening. There is no demonstrated parenchymal abnormality. There is no demonstrated pleural abnormality. Normal heart and pericardium. Normal mediastinum and maeve. Normal visualized pulmonary arteries. Normal visualized aortic arch and descending thoracic aorta. Normal visualized thoracic spine. Normal visualized ribs, clavicles, and shoulders. There is no demonstrated abnormality of the visualized soft tissue structures of the upper abdomen. RAD/Chest PA and Lateral IMPRESSION: Hyperexpanded lungs. Mild bilateral peribronchial interstitial thickening, possibly secondary to hyperactive airway disease. Reading Location: [place] [address] CC: Xiomara Man DO; Souleymane [facility] [place] BUTTER FILTER OPERATOR-C [employer] Worker: Signed Normal [facility] CBC (INCLUDES DIFF/PLT)on Basophils (Bld) [#/Vol] 0.032 10*3/uL Normal 0-200 [facility] Comment on above: Performed By: #### 5 12, 6399, 4848, 54064, 8472, 86566 #### [facility] [address], [address] Parts Identification Technician: Brayden Serrano MD Basophils/100 WBC (Bld) 1.0 % Normal [facility] Comment on above: Performed By: #### 5 12, 6399, 4848, 97973, 8472, 53172 #### [facility] [address], [address] [place] [address] Parts Identification Technician: Brayden Serrano MD Eosinophils (Bld) [#/Vol] 0.285 10*3/uL Normal 15-500 [facility] Comment on above: Performed By: #### 5 12, 6399, 4848, 09952, 8472, 06353 #### [facility] [place] [address] Parts Identification Technician: Brayden Serrano MD Eosinophils/100 WBC (Bld) 8.9 % Normal [facility] Comment on above: Performed By: #### 5 12, 6399, 4848, 91004, 8472, 47041 #### [facility] [place] [address] Parts Identification Technician: Brayden Serrano MD Erythrocyte distribution width (RBC) [Ratio] 12.6 % Normal 11.0-15.0 [facility] Comment on above: Performed By: #### 5 12, 6399, 4848, 33833, 8472, 22583 #### [facility]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 Instructions: MELANIE LAGOS has been given these follow-up instructions: Laboratory Orders: Name: Status: Comprehensive Metabolic Panel Completed CBC with Differential Completed Alcohol (Ethanol) Level Completed Drug Abuse Screen 8 Urine Completed Coronavirus (COVID-19/SARS-CoV-2) RAPID Completed GFRaa Completed GFRbb Completed Radiology Orders: None Ordered Diagnostic Tests: None Ordered Procedure(s) and Patient Education(s) : EMERGENCY SERVICES MEDICATION LIST Lista de Medicaciones de los Servicios de Emergencia Name MELANIE LAGOS MRN [facility]-[id number] [facility]# [id number] PLEASE READ THE FOLLOWING REGARDING YOUR MEDICATIONS Based on the information available during your visit we have given you the medication instructions below. Continue taking medications you took prior to your visit unless you have been told to change. Please share this information with your own doctor. Carry a list of your medications with you in case of an emergency. Update it when medications are stopped, doses are changed, or new medications (including zlcj-xhi-altrzyj products) are added. If you have any questions, check with your doctor. Por la informaci??n disponible ileana collins visita, las instrucciones de medicaci??n aparecen debajo. Favor de continuar tomando las medicaciones Ud. tho?? antes de collins visita por lo menos que hay cambios. Favor de compartir esta informaci??n con collins medico. Lleva shawn lista de medicaciones consigo por yoana de emergenc??a. Actualiza la lista cuando Ud. jhonny de anna las medicaciones, si cambian las dosis, o si hay nuevas medicaciones a??adidas (incluyendo medicaciones vendidas sin prescripci??n). Favor de preguntar a collins medico por cualquier carlitos. THESE ARE THE MEDICATIONS YOU SHOULD BE TAKING budesonide-formoterol (Symbicort 160/4.5 MDI) 2 Puff(s) Inhalation Twice a day. MEDICATIONS GIVEN DURING MEDICAL VISIT lorazepam 1 mg last dose given on 08/20/2020 at 11:45 Route: By Mouth nicotine 14 mg last dose given on 08/20/2020 at 23:35 Route: TransDermal *Remove Old Patch Before Applying New Patch* Remove if patient to go for MRI and replace once patient returns from MRI lorazepam 1 mg last dose given on 08/20/2020 at 23:35 Route: By Mouth As Needed for Agitation or Anxiety haloperidol 5 mg last dose given on 08/21/2020 at 15:00 Route: Intramuscular lorazepam 2 mg last dose given on 08/21/2020 at 15:00 Route: Intramuscular . ziprasidone 20 mg last dose given on 08/21/2020 at 15:15 Route: Intramuscular Max 40 mg PER DAY NON-MEDICATION PRESCRIPTION SCHEDULING PHONE NUMBER: MEDICATION CHANGE DETAILS (Not your Final Home Medication List) During the course of your visit, your home medication list was updated with the most current information. The details of those changes are shown below: NEW MEDICATIONS None UPDATED MEDICATIONS None UNCHANGED MEDICATIONS Other Medications budesonide-formoterol (Symbicort 160/4.5 MDI) 2 Puff(s) Inhalation Twice a day. Comment STOP TAKING THESE MEDICATIONS None DO NOT TAKE UNTIL YOU TALK TO YOUR DOCTOR None [address] [address] Emergency Department Discharge Instructions Name: MELANIE LAGOS Current Date: 08/21/2020 15:53:59 : 1990 Primary Physician: Physician, PCP Unknown We would like to thank you for choosing [facility] for your emergency medical needs. We examined and treated you today on an emergency basis only. This was not a substitute for, or an effort to provide, complete medical care. In most cases, you must let your doctor (or the doctor we referred you to) check you again. Tell your doctor about any new or lasting problems. We cannot recognize and treat all injuries or illnesses in one emergency department visit. After you leave, you should follow the directions attached. Instructions for obtaining X-rays: When following up with your doctor or a bone doctor, you may need to take copies of your x-rays that were done in the Emergency Department. If you didn't receive these upon your discharge from the emergency department, please call . When the final report becomes available and it is reviewed, the emergency department will attempt to contact you if there are any changes in your instructions. It is important that you leave accurate information with us on how to contact you. IF you cannot be contacted, YOU must contact the follow-up doctor that you were assigned to make sure that the final official x-ray report does not require a change in your treatment. Instructions for obtaining medical records: If you need a copy of your medical records for follow-up, please contact the Health Information Management Department at . Their office hours are 8 AM- 4:30 PM, Monday through Monday. Please note: Results are not immediately available. Please allow a minimum of 48 hours for documentation and results. If you were prescribed an antibiotic: Antibiotics are life-saving drugs and they need to be used properly. Your team might change your antibiotic because test results show that a different antibiotic would be better to treat your infection. Like all medications, antibiotics have side effects. Some can be serious. This includes the risk of getting an antibiotic-resistant infection later, which may be difficult to treat. Remember to take your antibiotics as prescribed. If you have any questions please talk to your healthcare team. Seatbelts: There is no doubt that seatbelts save lives. Every day, people without seatbelts have more serious injuries. Have everyone buckle up, using age appropriate seatbelts or car seats, to reduce their risk of injury. Smoking: If you do smoke, we encourage you to stop. Smoking affects all aspects of your health and the health of those around you. [facility] offers many resources to help with smoking cessation. Call the [place] Tobacco Quit Line at 6-021-CKAL-NOW ( ). High blood pressure: Your screening blood pressure today was 129 mm Hg / 84 mm Hg. Hypertension (high blood pressure) is blood pressure over 120/80. People with hypertension should contact their primary care provider within 30 days to follow up. Check your patient portal for additional blood pressure information. Immunizations: Immunization is a way to protect against deadly infections. Discuss this with your child's automotive service assistant, or Public Health Department. Your family practice doctor can determine if you need pneumonia or flu vaccine. The [facility] Department can be reached at . Substance Abuse Program: Concerns with addiction to alcohol, benzodiazepines (Ativan or Xanax) and Opiates (Heroin, Percocet, OxyContin, Methadone or Fentanyl)? [facility] offers an inpatient Substance Abuse Program to help treat the symptoms associated with medical detoxification of addictive substances. The new program offers care for non- adults (18 and older) looking to break the chain to addictive chemicals. The Substance Abuse Program is a voluntary inpatient admission and it starts with a pre-screening phone call to a social media editor. During the call, goals and objectives for recovery and how the patient will transition to outpatient care will be established. Please call [phone] to get help today. Domestic Violence: If you are a victim of domestic violence (physical, verbal, or emotional), you are not alone. Discuss this with your physician or a friend and call the [place] Domestic Violence Hotline or [place] Domestic Violence Hotline for assistance and support. You are the most important factor in your recovery. Follow the provided instructions carefully. Take your medications as prescribed. Most importantly, see a doctor again as discussed. If you have problems that we have not discussed, call or visit your doctor right away. If you do not have a primary care physician, we have provided one for you to follow up with. When you call for an appointment, please inform them that you were seen in the emergency department and the date of your visit. If you are unable to reach your doctor and are still experiencing problems, return to the emergency department. For assistance finding a primary care physician, call the Physician Referral Line at [phone] ([phone]). Suicide Hotline: Your mental and emotional well-being is important. If you are in a mental health crisis or are having thoughts of suicide, please call the [facility] suicide hotline, anytime day or night, at 6-431-817-KLJR (2131). Community Cardiovascular Technologist: You may be contacted by your local fire department for a follow up visit from a community reconnaissance man. The community reconnaissance man can help with a home safety check; follow up care, and general home care management. myHealth: With [employer] online patient portal you can check your hospital medical information any time, review and keep track of prescriptions, quickly access radiology and basic lab results, review all of your immunizations, allergies and medical history. In addition you can view your account balances and make payments online as well as manage a [employer] account for another adult such as spouse, parent or friend. Based on the tests ordered, there may be a delay in results posting to the patient portal. It's easy to sign up for [employer]: 1. Visit [employer] 2. Click on ??[place] for [employer]' 3. Verify your identity by entering your last name and date of (MM/DD/YYYY) 4. You'll be asked to set up a username and password. 5. Next, you'll create three security questions. Be sure to supply answers that are not easy for others to guess or discover. 6. If all information (first name, last name and date of ) matches what we have on file, we'll then send a PIN to your phone that you'll be asked to enter. 7. When your identity is verified, you'll be able to access your patient record. 8. Once all of this is complete and you've successfully activated your account, you'll be redirected to the [employer] login page. Login and check to see your results. Questions? For help with account enrollment, call [employer] Customer Support toll-free at [phone]. Pharmacy Information: Below is a list of 24 hour pharmacies that we are aware of. We suggest that you call the specific pharmacy for their hours before traveling to a location. Hours may vary on holidays. [facility] [place] [address] [place], [place] [address] [address] [place], [place] [address] [phone] [address] [place] [address] [address] [place], [place] [address] [address] [place], [place] [address] Take all medications as directed. If you need prescription assistance, contact the following agencies: ?? Partnership for Prescription Assistance at or www.pparx.org ?? [place] at or www.[place]estrx.org ?? www.[employer].com is a site with many valuable coupons Patient Education Materials MELANIE LAGOS has been given the following patient education materials: <><><><><><><><><><>< ><><><><><><><><><><> <><><><><> Patient Visit Summary Signature MELANIE LAGOS has been given the following list of patient education materials, prescriptions and follow-up instructions: DEMOND Crowley BRENDAN T, have received the above patient education materials/instruction s and have verbalized understanding: Date Time Patient Signature Date Time Provider Signature Normal [facility] Alcohol (Ethanol) Levelon Ethanol [Mass/Vol] mg/dL Normal 0.00-0.00 [facility] Comment on above: Performed By: #### 2 4323-8, 01325-9, 44080-0t7, 37010-3 #### [facility] [address], [place] CBC with Differentialon 07-28 Basophils (Bld) [#/Vol] 0.00 thou/mcL Normal 0.00-0.20 [facility] Comment on above: Performed By: #### 5 7021-8 #### [facility] [address], [place] Basophils/100 WBC (Bld) 1.2 % Normal 0.0-2.0 [facility] Comment on above: Performed By: #### 5 7021-8 #### [facility] [address], [place] Eosinophils (Bld) [#/Vol] 0.20 thou/mcL Normal 0.00-0. 70 [facility] Comment on above: Performed By: #### 5 7021-8 #### [facility] [address], [place] Eosinophils/100 WBC (Bld) 5.9 % Normal 0.0-7.0 [facility] Comment on above: Performed By: #### 5 7021-8 #### [address] Erythrocyte distribution width (RBC) [Entitic vol] 14.0 % Normal 11.0-14.8 [facility] Comment on above: Performed By: #### 5 7021-8 #### [address] Hematocrit (Bld) [Volume fraction] 45.9 % Normal 39.0-49.0 [facility] Comment on above: Performed By: #### 5 7021-8 #### [address] Hemoglobin (Bld) [Mass/Vol] 15.4 g/dL Normal 13.5-17. 5 [facility] Comment on above: Performed By: #### 5 7021-8 #### [address] Lymphocytes (Bld) [#/Vol] 0.90 thou/mcL Low 1.00-4. 80 [facility] Comment on above: Performed By: #### 5 7021-8 #### [address] Lymphocytes/100 WBC (Bld) 23.4 % Normal 22.0-44.0 [facility] Comment on above: Performed By: #### 5 7021-8 #### [address] MCH (RBC) [Entitic mass] 30.1 Picograms Normal 27.0-34 .0 [facility] Comment on above: Performed By: #### 5 7021-8 #### [address] MCHC (RBC) [Mass/Vol] 33.6 g/dL Normal 32.0-36.0 [facility] Comment on above: Performed By: #### 5 7021-8 #### [facility] [address], [place] MCV (RBC) [Entitic vol] 89.4 fL Normal 80.0-97.0 [facility] Comment on above: Performed By: #### 5 7021-8 #### [facility] [address], [place] Monocytes (Bld) [#/Vol] 0.50 thou/mcL Normal 0.00-0.90 [facility] Comment on above: Performed By: #### 5 7021-8 #### [facility] [address], [place] Monocytes/100 WBC (Bld) 12.3 % High 0.0-12.0 [facility] Comment on above: Performed By: #### 5 7021-8 #### [facility] [address], [place] Neutrophils (Bld) [#/Vol] 2.10 thou/mcL Normal 1.80-7. 70 [facility] Comment on above: Performed By: #### 5 7021-8 #### [facility] [address], [place] Neutrophils/100 WBC (Bld) 57.2 % Normal 40.0-70.0 [facility] Comment on above: Performed By: #### 5 7021-8 #### [facility] [address], [place] Platelet mean volume (Bld) [Entitic vol] 7.9 fL Normal 6.2-12.1 [facility] Comment on above: Performed By: #### 5 7021-8 #### [facility] [address], [place] Platelets (Bld) [#/Vol] 201 thou/mcL Normal 142-424 [facility] Comment on above: Performed By: #### 5 7021-8 #### [facility] [address], [place] RBC (Bld) [#/Vol] 5.14 million/mcL Normal 4.30-5.70 [facility] Comment on above: Performed By: #### 5 7021-8 #### [facility] [address], [place] WBC (Bld) [#/Vol] 3.7 thou/mcL Low 4.6-10.2 [facility] Comment on above: Performed By: #### 5 7021-8 #### [facility] [address], [place] Comprehensive Metabolic Pane ivana 08-20-2020 Albumin [Mass/Vol] 4.8 g/dL Normal 3.5-4.8 [facility] Comment on above: Performed By: #### 2 4323-8, 68939-8, 24409-3d3, 64157-9 #### [facility] [address], [place] ALP [Catalytic activity/Vol] 62 Units/L Normal 32-91 [facility] Comment on above: Performed By: #### 2 4323-8, 39661-8, 72903-2r8, 58024-7 #### [facility] [address], [place] ALT [Catalytic activity/Vol] 26 Units/L Normal 7-52 [facility] Comment on above: Result Comment: Mirna jarrell note: Change in reference range for ALT occurred on 04/09/20 at [facility], [facility], [facility], and [facility]. Performed By: #### 2 4323-8, 03861-7, 67077-2w1, 98771-2 #### [facility] [address], [place] Anion gap [Moles/Vol] 7.0 mmol/L Normal 6.0-18.0 [facility] Comment on above: Performed By: #### 2 4323-8, 38747-9, 39615-2p4, 43917-7 #### [facility] [address], [place] AST [Catalytic activity/Vol] 34 Units/L Normal 15-41 [facility] Comment on above: Performed By: #### 2 4323-8, 87527-8, 14534-3v4, 37931-4 #### [facility] [address], [place] Bilirubin [Mass/Vol] 1.1 mg/dL Normal 0.3-1.2 [facility] Comment on above: Performed By: #### 2 4323-8, 64857-4, 40434-2g6, 84917-2 #### [facility] [address], [place] Calcium [Mass/Vol] 9.2 mg/dL Normal 8.9-10.3 [facility] Comment on above: Performed By: #### 2 4323-8, 93239-5, 06130-3v5, 15367-8 #### [facility] AT [facility] [address], [place] Chloride [Moles/Vol] 103 mmol/L Normal 98-107 [facility] Comment on above: Performed By: #### 2 4323-8, 18633-1, 14063-6s2, 54863-9 #### [facility] AT [facility] [address], [place] CO2 [Moles/Vol] 26 mmol/L Normal 22-32 [facility] Comment on above: Performed By: #### 2 4323-8, 21714-2, 21250-5u9, 62031-6 #### [facility] [address], [place] Creatinine [Mass/Vol] 0.97 mg/dL Normal 0.60-1.30 [facility] Comment on above: Performed By: #### 2 4323-8, 04103-7, 46037-6e1, 73875-0 #### [facility] [address], [place] Glucose [Mass/Vol] 86 mg/dL Normal 70-99 [facility] Comment on above: Result Comment: U pdated ADA Reference Range A normal fasting glucose concentration is less than 100 mg/dL. An impaired fasting glucose concentration is 100-125 mg/dL. A provisional diagnosis of diabetes mellitus can be made when a fasting glucose concentration is greater than 125 mg/dL. Performed By: #### 2 4323-8, 24767-8, 22551-4k2, 49923-4 #### [facility] [address], [place] Potassium [Moles/Vol] 4.4 mmol/L Normal 3.6-5.1 [facility] Comment on above: Performed By: #### 2 4323-8, 54006-6, 19829-0c8, 12901-9 #### [facility] [address], [place] Protein [Mass/Vol] 7.0 g/dL Normal 6.1-7.9 [facility] Comment on above: Performed By: #### 2 4323-8, 93636-5, 01498-1b3, 40636-4 #### [facility] [address], [place] Sodium [Moles/Vol] 136 mmol/L Normal 136-145 [facility] Comment on above: Performed By: #### 2 4323-8, 38505-4, 15293-7d0, 95196-3 #### [facility] [address], [place] Urea nitrogen (BldV) [Mass/Vol] 9 mg/dL Normal 8-20 [facility] Comment on above: Performed By: #### 2 4323-8, 43114-4, 17140-8c6, 36680-6 #### [facility] [address], [place] Coronavirus (COVID-19/SARS-C oV-2) RAPIDon 08-20-2020 Device Identifier ID NOW COVID-19_[employer] [place], [facility]. EUA Normal [facility] Comment on above: Performed By: #### 9 4532-9x2 #### [facility] [address] [place] [id number] Employed in healthcare No Normal [facility] Comment on above: Performed By: #### 9 4532-9x2 #### [facility] [address] [place] [address] First test No [facility] Comment on above: Performed By: #### 9 4532-9x2 #### [facility] [address] [place] [address] ICU No [facility] Comment on above: Performed By: #### 9 4532-9x2 #### [facility] [address] [place] [address] Illness or injury onset date and time UNKNOWN [facility] Comment on above: Performed By: #### 9 4532-9x2 #### [facility] [address] [place] [address] Patient was hospitalized because of this condition No [facility] Comment on above: Performed By: #### 9 4532-9x2 #### [facility] [address] [place] [address] status NotPreg [facility] Comment on above: Performed By: #### 9 4532-9x2 #### [facility] [address] [place] [address] Resides in congregate care setting No [facility] Comment on above: Performed By: #### 9 4532-9x2 #### [facility] [address] [place], [place] [id number] SARS-CoV-2 NOTDET [facility] Comment on above: Result Comment: This test was performed via the [employer] ID NOW COVID-19 assay and has been authorized by FDA under an Emergency Use Authorization (EUA). The assay is validated for nasopharyngeal (COCOA BUTTER FILTER OPERATOR), nasal, and oropharyngeal (OP) direct swabs. The limit of detection of the assay is approximately 125 genome equivalence/mL; however, detection of SARS-CoV-2 may be affected by the sample collection and transport methods, patient factors (e.g., presence of symptoms, and/or stage of infection), and a negative result does not rule out the possibility of infection. For updated information, refer to the Center for Disease Control website: www.cdc.gov/coronavirus. Performed By: #### 9 4532-9x2 #### [facility] [address] [place], [place] [id number] Symptomatic as defined by CDC No Normal [facility] Comment on above: Performed By: #### 9 4532-9x2 #### [facility] [address] [place] [address] Drug Abuse Screen 8 Urineon 08-20-2020 Amphetamines Ql (U) Negative Normal [facility] Comment on above: Performed By: #### 1 2286-1 #### [facility] [address], [place] Barbiturates Screen Ql (U) Negative Normal [facility] Comment on above: Performed By: #### 1 2286-1 #### [facility] [address], [place] Benzodiazepines cutoff Screen (U) [Mass/Vol] Negative Normal [facility] Comment on above: Performed By: #### 1 2286-1 #### [facility] [address], [place] Cocaine Ql (U) Positive Abnormal [facility] Comment on above: Result Comment: Conf irmatory testing available upon request. Performed By: #### 1 2286-1 #### [facility] [address], [place] Interpretation and review of laboratory results Negative Normal [facility] Comment on above: Performed By: #### 1 2286-1 #### [facility] [address], [place] Methadone Screen Ql (U) Negative Normal NEGA TIVE-N EGATIVE [facility] Comment on above: Performed By: #### 1 2286-1 #### [facility] [address], [place] Opiates Screen Ql (U) Negative Normal [facility] Comment on above: Result Comment: INTE RPRETATION TABLE FOR SAP8 URINE DRUG SCREEN PRESUMPTIVE POSITIVE CUT-OFF VALUES (NG/ML) TEST POSITIVE CUT-OFF VALUES(NG/ML) Amphetamine 1000 Barbiturate 200 Benzodiazepines 200 Cannabinoids 50 Cocaine 300 Methadone 300 Opiates 300 Oxycodone 100 All drugs identified should be considered presumptive positives. Presumptive Positive Screens can be confirmed by a reference lab upon request. ALL DRUG SCREEN RESULTS ARE FOR MEDICAL PURPOSES ONLY. Performed By: #### 1 2286-1 #### [facility] [address], [place] Tetrahydrocannabinol Screen Ql (U) Positive Abnormal [facility] Comment on above: Result Comment: Conf irmatory testing available upon request. Performed By: #### 1 2286-1 #### [facility] [address], [place] GFRaaon 08-20-2020 GFR/1.73 sq M predicted among blacks MDRD (S/P/Bld) [Vol rate/Area] mL/min/{1.73_m2} Normal [facility] Comment on above: Result Comment: The MDRD equation has not been validated for those over 70 years, women, patients with serious co-morbid conditions, or with extremes of body size, muscle mass of nutritional status. Performed By: #### 2 4323-8, 83425-6, 88200-9c6, 74616-8 #### [facility] [address], [place] GFRbbon 08-20-2020 GFR/1.73 sq M predicted among non-blacks MDRD (S/P/Bld) [Vol rate/Area] mL/min/{1.73_m2} Normal [facility] Comment on above: Performed By: #### 2 4323-8, 95911-5, 13452-4f9, 95799-3 #### [facility] [address], [place] ED PROVIDERon 03-30-2017 [facility] NOTES Normal [facility] NOT[facility] Normal [facility] Vital Signs Date Time Vital Sign Value Performing Clinician Facility 01-17-2025 06:30-0400 Body mass index (BMI) [Ratio] 29.4 kg/m2 Xiomara Man DO Work Phone: [facility] 01-17-2025 06:30-0400 Body temperature 97.5 [degF] Xiomara Magda DO Work Phone: 7(905)823-340354 [place] [address] 01-17-2025 06:30-0400 Body weight 98.42 kg Xiomara Magda DO Work Phone: 8(148)065-480854 [place] [address] 01-17-2025 06:30-0400 Diastolic blood pressure 90 mm[Hg] Xiomara Magda DO Work Phone: 7(568)252-544854 [place] [address] 01-17-2025 06:30-0400 Heart rate 70 /min Xiomara Magda DO Work Phone: 4(738)902-612054 [place] [address] 01-17-2025 06:30-0400 Respiratory rate 20 /min Xiomara Magda DO Work Phone: 1(642)336-000854 [place] [address] 01-17-2025 06:30-0400 SaO2% (BldA) [Mass fraction] 96 % Xiomara Magda DO Work Phone: 4(008)987-645254 [place] [address] 01-17-2025 06:30-0400 Systolic blood pressure 140 mm[Hg] Xiomara Magda DO Work Phone: 6(943)362-254054 [place] [address] 12-16-2024 11:19-0400 Body height 182.88 cm Xiomara Magda DO Work Phone: 9(945)550-008654 [place] [address] 12-16-2024 11:19-0400 Body mass index (BMI) [Ratio] 29.5 kg/m2 Xiomara Magda DO Work Phone: 6(526)228-029754 [place] [address] 12-16-2024 11:19-0400 Body temperature 97.5 [degF] Xiomara Magda DO Work Phone: 8(377)169-110954 [place] [address] 12-16-2024 11:19-0400 Body weight 98.88 kg Xiomara Magda DO Work Phone: 3(888)065-359454 [place] [address] 12-16-2024 11:19-0400 Diastolic blood pressure 87 mm[Hg] Xiomara Magda DO Work Phone: 2(419)441-497254 [place] [address] 07-21-2025 11:19-0400 Heart rate 71 /min Xiomara Magda DO Work Phone: [facility] 12-16-2024 11:19-0400 Respiratory rate 16 /min Xiomara Magda DO Work Phone: [facility] 12-16-2024 11:19-0400 SaO2% (BldA) [Mass fraction] 97 % Xiomara Magda DO Work Phone: [facility] 12-16-2024 11:19-0400 Systolic blood pressure 126 mm[Hg] Xiomara Magda DO Work Phone: [facility] 10-03-2023 18:53-0400 Diastolic blood pressure 79 mm[Hg] Kathleen Nisha DO Work Phone: [facility] Comment on above: Bp Recheck -aa 10-03-2023 18:53-0400 Systolic blood pressure 147 mm[Hg] Kathleen Bell DO Work Phone: [facility] Comment on above: Bp Recheck -aa 10-03-2023 18:52-0400 Body height 182.9 cm Kathleen Nancykaushal DO Work Phone: [facility] 10-03-2023 18:52-0400 Body mass index (BMI) [Ratio] 21.97 kg/m2 Kathleen Nancykaushal DO Work Phone: [facility] 10-03-2023 18:52-0400 Body temperature 98.2 [degF] Kathleen Bell DO Work Phone: [facility] 10-03-2023 18:52-0400 Body weight 73.48 kg Kathleen Bell DO Work Phone: [facility] 10-03-2023 18:52-0400 Heart rate 90 /min Kathleen Bell DO Work Phone: [facility] 10-03-2023 18:52-0400 Respiratory rate 13 /min Kathleen Bell DO Work Phone: [facility] 10-03-2023 18:52-0400 SaO2% (BldA) [Mass fraction] 93 % Kathleen Bell DO Work Phone: [facility] 11-24-2022 15:59-0400 Body height 182.9 cm Denise Calix LEAD RADIATION THERAPIST Work Phone: [facility] 11-24-2022 15:59-0400 Body mass index (BMI) [Ratio] 21.02 kg/m2 Denise Calix LEAD RADIATION THERAPIST Work Phone: [facility] 11-24-2022 15:59-0400 Body temperature 98.1 [degF] Denise Calix LEAD RADIATION THERAPIST Work Phone: [facility] 11-24-2022 15:59-0400 Body weight 70.31 kg Denise Calix LEAD RADIATION THERAPIST Work Phone: [facility] 11-24-2022 15:59-0400 Diastolic blood pressure 69 mm[Hg] Denise Calix LEAD RADIATION THERAPIST Work Phone: [facility] 11-24-2022 15:59-0400 Heart rate 83 /min Denise Calix LEAD RADIATION THERAPIST Work Phone: [facility] 11-24-2022 15:59-0400 Respiratory rate 16 /min Denise Calix LEAD RADIATION THERAPIST Work Phone: [facility] 11-24-2022 15:59-0400 SaO2% (BldA) [Mass fraction] 97 % Denise Aclix LEAD RADIATION THERAPIST Work Phone: [facility] 11-24-2022 15:59-0400 Systolic blood pressure 139 mm[Hg] Denise Calix LEAD RADIATION THERAPIST Work Phone: [facility] 01-27-2022 11:02-0400 SaO2% (BldA) [Mass fraction] 96 % Faith Lamport PA-C Work Phone: [facility] 01-27-2022 10:02-0400 Body height 182.9 cm Faith Lamport PA-C Work Phone: [facility] 01-27-2022 10:02-0400 Body mass index (BMI) [Ratio] 21.56 kg/m2 Faith Lamport PA-C Work Phone: [facility] 01-27-2022 10:02-0400 Body temperature 98.2 [degF] Faith Lamport PA-C Work Phone: [facility] 01-27-2022 10:02-0400 Body weight 72.12 kg Faith Lamport PA-C Work Phone: [facility] 01-27-2022 10:02-0400 Diastolic blood pressure 83 mm[Hg] Faith Lamport PA-C Work Phone: [facility] 01-27-2022 10:02-0400 Heart rate 86 /min Faith Lamport PA-C Work Phone: [facility] 01-27-2022 10:02-0400 Systolic blood pressure 133 mm[Hg] Faith Lamport PA-C Work Phone: [facility] 01-17-2022 18:12-0400 Body height 182.9 cm Hanane Talbert LEAD RADIATION THERAPIST Work Phone: [facility] 01-17-2022 18:12-0400 Body mass index (BMI) [Ratio] 21.7 kg/m2 Hanane Conn LEAD RADIATION THERAPIST Work Phone: [facility] 01-17-2022 18:12-0400 Body temperature 98.49 [degF] Hanane Conn LEAD RADIATION THERAPIST Work Phone: [facility] 01-17-2022 18:12-0400 Body weight 72.58 kg Hanane Conn LEAD RADIATION THERAPIST Work Phone: [facility] 01-17-2022 18:12-0400 Diastolic blood pressure 82 mm[Hg] Hanane Conn LEAD RADIATION THERAPIST Work Phone: [facility] 01-17-2022 18:12-0400 Heart rate 62 /min Hanane Conn LEAD RADIATION THERAPIST Work Phone: [facility] 01-17-2022 18:12-0400 Respiratory rate 16 /min Hanane Conn LEAD RADIATION THERAPIST Work Phone: [facility] 01-17-2022 18:12-0400 SaO2% (BldA) [Mass fraction] 96 % Hanane Talbert LEAD RADIATION THERAPIST Work Phone: [facility] 01-17-2022 18:12-0400 Systolic blood pressure 135 mm[Hg] Hanane Talbert LEAD RADIATION THERAPIST Work Phone: [facility] 09-04-2021 10:00-0400 Body height 182.9 cm Marta Engel MD Work Phone: [facility] 09-04-2021 10:00-0400 Body mass index (BMI) [Ratio] 21.86 kg/m2 Marta Engel MD Work Phone: [facility] 09-04-2021 10:00-0400 Body temperature 99.19 [degF] Marta nEgel MD Work Phone: [facility] 09-04-2021 10:00-0400 Body weight 73.12 kg Marta Engel MD Work Phone: [facility] 09-04-2021 10:00-0400 Diastolic blood pressure 86 mm[Hg] Marta Engel MD Work Phone: [facility] 09-04-2021 10:00-0400 Heart rate 81 /min Marta Engel MD Work Phone: [facility] 09-04-2021 10:00-0400 Respiratory rate 16 /min Marta Engel MD Work Phone: [facility] 09-04-2021 10:00-0400 SaO2% (BldA) [Mass fraction] 98 % Marta Engel MD Work Phone: [facility] 09-04-2021 10:00-0400 Systolic blood pressure 133 mm[Hg] Marta Engel MD Work Phone: [facility] 09-28-2020 02:09-0400 Body height 182.9 cm Dakota Park MD Work Phone: [facility] 09-28-2020 02:09-0400 Body mass index (BMI) [Ratio] 22.38 kg/m2 Dakota Park MD Work Phone: [employer] 09-28-2020 02:09-0400 Body temperature 98.2 [degF] Dakota Park MD Work Phone: [employer] 09-28-2020 02:09-0400 Body weight 74.84 kg Dakota Park MD Work Phone: [employer] 09-28-2020 02:09-0400 Diastolic blood pressure 79 mm[Hg] Dakota Park MD Work Phone: [employer] 09-28-2020 02:09-0400 Heart rate 81 /min Dakota Park MD Work Phone: [employer] 09-28-2020 02:090400 Respiratory rate 16 /min Dakota Park MD Work Phone: [employer] 09-28-2020 02:09-0400 SaO2% (BldA) [Mass fraction] 98 % Dakota Park MD Work Phone: [employer] 09-28-2020 02:09-0400 Systolic blood pressure 118 mm[Hg] Dakota Park MD Work Phone: [employer] Encounters Encounter Date Encounter Type Care Provider Facility Start: 01-17-2025 End: 01-17-2025 Patient encounter procedure COCOA BUTTER FILTER OPERATOR Casandra De La Cruz -[facility] Work Phone: Start: 01-17-2025 End: 01-17-2025 ambulatory Xiomara Man DO Work Phone: -[facility] Start: 12-16-2024 End: 12-16-2024 ambulatory Xiomara Magda DO Work Phone: [facility] Start: 12-16-2024 End: 12-16-[address] Shawn Mclean DO -[facility] Start: 12-16-2024 End: 12-16-[address] Shawn Mclean DO -[facility] Work Phone: Start: 12-16-2024 End: 12-16-2024 ambulatory Xiomara Man DO Work Phone: -[facility] Start: 12-16-2024 End: 12-16-2024 ambulatory Shawn Mclean Facility:[facility] Start: 12-06-2024 End: 12-06-2024 ambulatory Xoimara Magda JOSEPH Work Phone: -Pulmonary Services/Neurology Start: 12-06-2024 End: 12-06-2024 Patient encounter procedure Zebulun Beam COCOA BUTTER FILTER OPERATOR-C -Pulmonary Services/Neurology Work Phone: Start: 12-06-2024 End: 12-06-2024 ambulatory Zebulun Beam VSC Facility:[facility] Start: 11-20-2024 End: 11-20-2024 ambulatory Xiomara Magda JOSEPH Work Phone: -Radiology [facility] Start: 11-20-2024 End: 11-20-2024 Patient encounter procedure Zebulun Beam COCOA BUTTER FILTER OPERATOR-C -Radiology [facility] Work Phone: Start: 11-20-2024 End: 11-20-2024 ambulatory Zebulun Beam VSC Facility:[facility] Start: 07-26-2024 End: 07-30-2024 ambulatory FRANCISCO [facility] Start: 07-24-2024 End: 07-24-2024 Orders Only Francisco Beaulieu MD Work Phone: [facility] Comment on above: Anxiety disorder, un specified type (Primary Dx); Cocaine abuse (HCC); Exposure to hepatitis C Start: 02-13-2024 End: 02-17-2024 ambulatory VICKEYCHRISTOPHER RING [facility] Start: 10-30-2023 End: 02-23-2024 Documentation procedure Rhiannon Duran LPN [facility] Start: 10-03-2023 End: 10-07-2023 ambulatory KATHLEEN BELL [facility] Start: 10-03-2023 End: 10-03-2023 Office outpatient visit 15 minutes Kathleen Bell DO Work Phone: [facility] Comment on above: 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); Finger pain, right; Closed nondisplaced fracture of distal phalanx of right little finger, initial encounter Start: 06-01-2023 End: 06-05-2023 ambulatory [facility] Start: 05-17-2023 End: 05-21-2023 ambulatory [facility] Start: 11-24-2022 End: 11-28-2022 ambulatory [facility] Start: 11-24-2022 End: 11-24-2022 Office outpatient visit 15 minutes Denise Calix LEAD RADIATION THERAPIST Work Phone: [facility] Comment on above: Right hand pain (Pham shilpi Dx) Start: 01-27-2022 End: 01-27-2022 Office outpatient new 30 minutes Faith Singh PA-C Work Phone: [facility] Comment on above: Suspected COVID-19 v irus infection (Primary Dx); Cough; Chest tightness; Asthma, unspecified asthma severity, unspecified whether complicated, unspecified whether persistent; Runny nose; Lab test negative for COVID-19 virus Start: 01-17-2022 End: 01-17-2022 Office outpatient visit 15 minutes Hanane Talbert CNP Work Phone: [facility] Comment on above: Dysuria (Primary Dx) ; Penile discharge; Urethritis Start: 09-04-2021 End: 09-04-2021 Office outpatient visit 15 minutes Marta Engel MD Work Phone: [facility] Comment on above: Acute left-sided low back pain with left-sided sciatica (Primary Dx) Start: 09-28-2020 End: 09-28-2020 Emergency department patient visit Dakota Park MD Work Phone: [facility] Emergency Department Start: 03-30-2017 End: 03-30-2017 Emergency department patient visit [facility] Procedures Date Procedure Procedure Detail Performing Clinician Start: 12-16-2024 Alternaria alternata RAST Xiomara Magda DO Work Phone: Start: 12-16-2024 Citizen Of [place] cockroach RAST Xiomara Magda DO Work Phone: Start: 12-16-2024 Antibody measurement Kr isnicholas Magda DO Work Phone: Comment on above: The atypical pANCA p attern has been observed in asignificant percentage of patients with ulcerative colitis,primary sclerosing cholangitis and autoimmune hepatitis. Start: 12-16-2024 Box elder RAST Xiomara Magad DO Work Phone: Start: 12-16-2024 Genoa RAST Xiomara We nger DO Work Phone: Start: 12-16-2024 Common ragweed RAST Harleyi sten Magda DO Work Phone: Start: 12-16-2024 Common silver birch RAST Xiomara Magda DO Work Phone: Start: 12-16-2024 House dust mite (Df) RAST Xiomara Magda DO Work Phone: Start: 12-16-2024 Mouse urine proteins RAST Xiomara Magda DO Work Phone: Start: 12-16-2024 Pecan nut RAST Xiomara Magda DO Work Phone: Start: 12-16-2024 Penicillium chrysoge num RAST Xiomara Magda DO Work Phone: Start: 12-16-2024 Equatorial Guinean thistle RAST Kr isten Magda DO Work Phone: Start: 12-16-2024 Tree pollen RAST Kriste n Magda DO Work Phone: Start: 12-16-2024 Louise pollen RAST Kriste n Magda DO Work Phone: Start: 11-20-2024 X-ray of chest, PA a nd lateral views Xiomara Magda DO Work Phone: Start: 10-03-2023 Radex fingr minimum 2 views Kathleen Bell DO Work Phone: Start: 11-24-2022 Radex hand minimum 3 views Denisetwin Calix LEAD RADIATION THERAPIST Work Phone: Start: 01-27-2022 Sars-cov-2 detection by dna/rna Faith Singh PA-C Work Phone: Start: 01-17-2022 Urnls dip stick/tabl et rgnt auto w/o microscopy Hanane Talbert LEAD RADIATION THERAPIST Work Phone: Start: 10-05-2020 Adult depression scr eening assessment Marta Engel MD Work Phone: Plan of Treatment Date Care Activity Detail Author Start: 07-17-2025 Depression screening using PHQ-9 (Patient Health Questionnaire 9) score Depression Screening/Follow-Up (PHQ-2/9) [facility] Start: 01-14-2025 End: 01-14-2025 Patient encounter procedure 01/14/2025 9:40 AM EDT Office Visit [address] [place] [address] Vickey Barker, [facility] [address] [place] [address] [facility] Start: 12-16-2024 IgE [Units/volume] i n Serum or Plasma [facility] Start: 12-16-2024 [facility] Start: 01-28-2024 COVID-19 Vaccine ( season) COVID-19 Vaccine ( season) [facility] Start: 01-28-2024 COVID-19 Vaccine ( season) COVID-19 Vaccine ( season) [facility] Start: 01-28-2024 Influenza vaccination [facility] Start: 11-16-2023 End: 11-16-2023 Patient encounter procedure 11/16/2023 1:40 PM EDT Office Visit [facility] [address] [place] [address] Meghana Doran, LEAD RADIATION THERAPIST [address] [place] [address] [facility] Start: 10-10-2023 End: 10-10-2023 Patient encounter procedure 10/10/2023 11:00 AM EDT Office Visit [facility] [address] [place] [address] Michelle Palma, LEAD RADIATION THERAPIST [address] [place] [address] Blanquita Singh, LEAD RADIATION THERAPIST [address] [place] [address] [facility] Start: 09-26-2023 Tetanus vaccination Tetanus: Every 1 0yrs [facility] Start: 01-27-2023 COVID-19 Vaccine (#1) COVID-19 Vacci ne (#1) [facility] Comment on above: Postponed from 05/16 (Patient Refused) Start: 01-27-2023 COVID-19 Vaccine ( season) COVID-19 Vaccine ( season) [facility] Start: 01-27-2023 Influenza vaccination Sequenti al Influenza Vaccine (Season Ended) [facility] Start: 01-27-2022 Influenza vaccination [facility] Start: 10-05-2021 Depression screening using PHQ-9 (Patient Health Questionnaire 9) score [facility] Start: 01-27-2021 Influenza vaccination INFLUENZ A VACCINE (Season Ended) [facility] Start: 2008 Pneumococcal Vaccine : Ped or At-Risk (1 of 2 - PCV) Pneumococcal Vaccine: Ped or At-Risk (1 of 2 - PCV) [facility] Start: 2008 Third diphtheria, te tanus and acellular pertussis (DTaP) vaccination TDAP (ADULT) [facility] Start: 11-15-2007 Tetanus vaccination TETANUS [facility] Start: 2002 HIV screening HIV SCREENING DISCUSSION [facility] Start: 11-15-1995 Pneumococcal Vaccine : Ped or At-Risk (1 - PCV) Pneumococcal Vaccine: Ped or At-Risk (1 - PCV) [facility] Start: 11-15-1995 Pneumococcal Vaccine : Ped or At-Risk (1 of 2 - PCV) Pneumococcal Vaccine: Ped or At-Risk (1 of 2 - PCV) [facility] Start: 11-15-1995 Pneumococcal Vaccine : Ped or At-Risk (1 of 2 - PPSV23) Pneumococcal Vaccine: Ped or At-Risk (1 of 2 - PPSV23) [facility] Start: 1994 COVID-19 Vaccine (1) COVID-19 Vaccin e (1) [facility] Start: 1992 History and physical examination, annual for health maintenance Wellness Visit [facility] Start: 05-16-1990 COVID-19 Vaccine (#1) COVID-19 Vacci ne (#1) [facility] Start: 1989 Hepatitis C antibody , confirmatory test HEPATITIS C VIRUS SCREENING [facility] Ricri-5-dejefstsjit measurement [facility] Alternaria alternata IgE Ab [Units/volume] in Serum [facility] Citizen Of [place] Cockroach I gE Ab [Units/volume] in Serum [facility] Aspergillus fumigatus RAST [facility] Berm[place] grass IgE Ab [Units/volume] in Serum [facility] Box elder [facility] Cat dander [facility] CBC W Auto Different ial panel - Blood [facility] [place] [facility] Chlamydia trachomati s rRNA assay Chlamydia/GC/Trichomona s Amplified RNA Microbiology Routine Dysuria Penile discharge 01/17/2022 6:19 PM EDT [facility] Work Phone: End: 07-24-2025 Chlamydia trachomatis rRNA assay Chlamydia/GC/Trichomona s Amplified RNA Microbiology Routine Anxiety disorder, unspecified type Cocaine abuse (HCC) Exposure to hepatitis C 1 Occurrences starting 07/24/2024 until 07/24/2025 [facility] Comment on above: 1 Occurrences starti ng 07/24/2024 until 07/24/2025 Cladosporium herbaru m IgE Ab [Units/volume] in Serum [facility] Common Pigweed IgE A b [Units/volume] in Serum [facility] Common Ragweed IgE A b [Units/volume] in Serum [facility] Common silver birch RAST [facility] End: 07-24-2025 Complete blood count with white cell differential, manual CBC and Differential Lab Routine Anxiety disorder, unspecified type Cocaine abuse (HCC) Exposure to hepatitis C 1 Occurrences starting 07/24/2024 until 07/24/2025 [facility] Work Phone: Comment on above: 1 Occurrences starti ng 07/24/2024 until 07/24/2025 End: 07-24-2025 Comprehensive metabolic 2000 panel - Serum or Plasma Comprehensive Metabolic Panel Lab Routine Anxiety disorder, unspecified type Cocaine abuse (HCC) Exposure to hepatitis C 1 Occurrences starting 07/24/2024 until 07/24/2025 [facility] Comment on above: 1 Occurrences starti ng 07/24/2024 until 07/24/2025 Arthur RAST [facility] Dog epithelium IgE A b [Units/volume] in Serum [facility] house dust mite IgE Ab [Units/volume] in Serum [facility] End: 07-24-2025 Hepatitis panel measurement Hepatitis Panel, Acute Lab Routine Anxiety disorder, unspecified type Cocaine abuse (HCC) Exposure to hepatitis C 1 Occurrences starting 07/24/2024 until 07/24/2025 [facility] Comment on above: 1 Occurrences starti ng 07/24/2024 until 07/24/2025 House dust mite (Df) RAST [facility] End: 07-24-2025 Human immunodeficiency virus antibody test HIV 1/2 Screen (4th Generation) Lab Routine Anxiety disorder, unspecified type Cocaine abuse (HCC) Exposure to hepatitis C 1 Occurrences starting 07/24/2024 until 07/24/2025 [facility] Comment on above: 1 Occurrences starti ng 07/24/2024 until 07/24/2025 IgE [Units/volume] i n Serum or Plasma [facility] Immunoglobulin E measurement [facility] Measurement of Asper gillus flavus antibody [facility] Measurement of Asper gillus fumigatus antibody [facility] Measurement of Asper gillus niger antibody [facility] Mouse urine proteins RAST [facility] Neisseria gonorrhoea e nucleic acid detection Chlamydia/Gonorrhoeae Amplified RNA Microbiology Routine Dysuria Penile discharge 01/17/2022 6:19 PM EDT [facility] Neutrophil cytoplasm ic Ab.classic [Units/volume] in Serum [facility] P-ANCA measurement [facility] Pecan nut [facility] Penicillium chrysoge [facility] Equatorial Guinean thistle [facility] Sheep [place] IgE Ab [Units/volume] in Serum [facility] Sarmad IgE Ab [Units/volume] in Serum [facility] Tree pollen [facility] Trichomonas vaginali s Amplified RNA Trichomonas vaginalis Amplified RNA Microbiology Routine Dysuria Penile discharge 01/17/2022 6:19 PM EDT [facility] White Ramiro IgE Ab [Units/volume] in Serum [facility] White Elm IgE Ab [Units/volume] in Serum [facility] White mulberry IgE A b [Units/volume] in Serum [facility] Immunizations Immunization Date Immunization Notes Care Provider Juliette crockett 09-25-2013 tetanus toxoid, redu martina diphtheria toxoid, and acellular pertussis vaccine, adsorbed Marta Engel MD Work Phone: [facility] 10-10-2006 meningococcal ACWY v accine, unspecified formulation Marta Engel MD Work Phone: [facility] 01-11-2003 hepatitis B vaccine, pediatric or pediatric/adolescent dosage Marta Engel MD Work Phone: [facility] 01-11-2003 tetanus toxoid, adsorbed Emmanuelle Engel MD Work Phone: [facility] 01-07-2002 hepatitis B vaccine, pediatric or pediatric/adolescent dosage Marta Engel MD Work Phone: [facility] 01-13-2001 hepatitis B vaccine, pediatric or pediatric/adolescent dosage Marta Engel MD Work Phone: [facility] 01-13-2001 measles, mumps and r ubella virus vaccine Marta Engel MD Work Phone: [facility] 01-24-1995 diphtheria, tetanus toxoids and acellular pertussis vaccine, unspecified formulation Marta Engel MD Work Phone: [facility] 01-24-1995 trivalent poliovirus vaccine, live, oral Marta Engle MD Work Phone: [facility] 11-07-1991 diphtheria, tetanus toxoids and pertussis vaccine Marta Engel MD Work Phone: [facility] 11-07-1991 haemophilus influenz ae type b vaccine, conjugate unspecified formulation Marta Engel MD Work Phone: [facility] 11-07-1991 measles, mumps and r ubella virus vaccine Marta Engel MD Work Phone: [facility] 11-07-1991 trivalent poliovirus vaccine, live, oral Marta Engel MD Work Phone: [facility] 10-12-1990 haemophilus influenz ae type b vaccine, conjugate unspecified formulation Marta Engel MD Work Phone: [facility] 07-27-1990 diphtheria, tetanus toxoids and pertussis vaccine Marta Engel MD Work Phone: [facility] 03-30-1990 diphtheria, tetanus toxoids and pertussis vaccine Marta Engel MD Work Phone: [facility] 03-30-1990 trivalent poliovirus vaccine, live, oral Marta Engel MD Work Phone: [facility] 01-26-1990 diphtheria, tetanus toxoids and pertussis vaccine Marta Engel MD Work Phone: [facility] 01-26-1990 trivalent poliovirus vaccine, live, oral Marta Engel MD Work Phone: [facility] Payers Date Payer Category Payer Self-pay 2016 Unknown [id number] 1989 Unknown [id number] 2.16. [id number] 1989 Unknown [id number] 2.16. [id number] 1989 Unknown [id number] 2.16. [id number] 1989 Unknown [id number] 2.16. [id number] 1989 Unknown [id number] 2.16. [id number] Unknown [id number] 2.16.8 [id number] Unknown [id number] 2.16.8 [id number] Unknown [id number] 2.16.8 [id number] Unknown [id number] 2.16.8 [id number] Unknown [id number] 2.16.8 [id number] Unknown [id number] 2.16.8 [id number] Social History Date Type Detail Facility Start: 09-28-2020 End: 12-16-2024 Tobacco smoking status WVIS Current every day smoker [facility] History of tobacco use Cigarette Smoker [facility] Start: 09-28-2020 End: 07-17-2024 Cigarettes smoked current (pack per day) - Reported [facility] Start: 09-28-2020 End: 01-17-2022 Tobacco use and exposure Never used [facility] Start: 09-28-2020 End: 09-04-2021 Alcohol intake Current non-drinker of alcohol (finding) [facility] Start: 1990 Sex Assigned At Not on file [facility] Start: 08-25-2021 End: 01-27-2022 Exposure to SARS-CoV-2 (event) Not sure [facility] History of tobacco use Cigar Smoker [facility] Start: 08-05-2020 End: 01-17-2022 Tobacco Comment 3-4 Black Milds [facility] Start: 01-17-2022 End: 07-17-2024 Alcohol intake Current drinker of alcohol (finding) [facility] Start: 01-17-2022 Alcohol Comment occasionally [facility] Start: 03-09-2022 End: 07-17-2024 Tobacco use panel [facility] Adult Depression Screening Assessment 0 [facility] Start: 06-13-2017 Gender identity Identifies as male gender (finding) [facility] Start: 06-13-2017 Sexual orientation Heterosexual (finding) [facility] Tobacco smoking stat us NHIS Unknown if ever smoked [facility] Work Phone: Start: 1990 Sex Assigned At Male [facility] Goals Date Patient Goal Desired Activity /State Personal health goal Clinical Notes 09-28-2020 to 12-16-2024 Note Date & Type Note Facility 12-16-2024 Evaluation note Diagnosis Onset Date Resolution Asthma chronic December 16 11:12am Nicotine dependence, cigarettes, uncomplicated chronic December 16, 2024 11:12am [facility] Work Phone: 1(384) 715-245407-21-2025 Evaluation note* Diagnosis Onset Date Resolution Status Admit Date Asthma chronic December 16 11:12am Nicotine dependence, cigarettes, uncomplicated chronic November 272024 11:12am Asthma chronic January 17, 2:08pm Nicotine dependence, cigarettes, uncomplicated chronic January 17, 2025 2:08pm [facility] Work Phone: 1(198) 291-176506-26-2025 Radiology Diagnostic study note [facility] Imaging Services [address] [place], [place] [address] Chest PA and Lateral MR#: [id number] Acct: [id number] Name: MELANIE LAGOS Rep #: [id number] : 1990 M 34 From: Eric Tomlin MD PCP: Xiomara Man DO Status: REG CLI Study:Chest PA and Lateral Date of Exam: 11/20/24 Exam# [id number] Ordering Dr: Brayden Awad jesus [facility] [place] BUTTER FILTER OPERATOR-C PROCEDURE: CHEST PA AND LATERAL 11/20/2024 REASON FOR EXAM: ASTHMA TECHNIQUE: CHEST PA AND LATERAL COMPARISON: None. FINDINGS: The lungs are hyperexpanded. Mild bilateral peribronchial interstitial thickening. There is no demonstrated parenchymal abnormality. There is no demonstrated pleural abnormality. Normal heart and pericardium. Normal mediastinum and maeve. Normal visualized pulmonary arteries. Normal visualized aortic arch and descending thoracic aorta. Normal visualized thoracic spine. Normal visualized ribs, clavicles, and shoulders. There is no demonstrated abnormality of the visualized soft tissue structures ofthe upper abdomen. RAD/Chest PA and Lateral IMPRESSION: Hyperexpanded lungs. Mild bilateral peribronchial interstitial thickening, possibly secondary to hyperactive airway disease. Reading Location: [place] [address] CC: Xiomara Man DO; Souleymane [facility] COCOA BUTTER FILTER OPERATOR-C Beam ~ [employer] Worker: Signed [facility]09-27-2024 History of Present illness Narrative* Rhiannon Duran LPN - 02/23/2024 3:52 PM EDT . documented in this [id number] NotePROGRESS :This report has been cancelled.[facility]05-14-2024 NotePROGRESS :This report has been cancelled.[facility]05-07-2024 NotePATIENT NAME: Melanie Lagos [facility]: [address] [facility] [address] DATE OF VISIT: 10/03/2023 DATE OF : 1990 SS: [id number] PROVIDER: Kathleen Bell DO SUBJECTIVE 32 y.o. male to the clinic for complaint of Chief Complaint Patient presents with Hand Pain Right pinky pain and abnormal position of tip of pinky, painful, starting 1 month ago Pt unsure of how he injured finger and not willing to explain HPI: Melanie injured his right pinky finger 1 month ago. He was not specific as to how the injury occurred. 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 He has been managing with some compromise since the injury occurred. In the past couple days, it has become more painful as he has continued to work. Finger has been stuck in an abnormal position with the DIP joint flexed. Pain is located at that joint and also throughout the middle phalanx and PIP joint. ROS: Musculoskeletal: See HPI above. Skin: Denies associated skin injury such as laceration or abrasion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 CHEST WALL TTP OR CREPITUS. NO PAINFUL RESPS. P02 92% on ra; recheck 96% on RA; + eew throughout. + dry bronchospastic cough. No leg swelling Chest: Chest wall: No tenderness. Abdominal: General: Bowel sounds are normal. There is no distension. Palpations: Abdomen is soft. Tenderness: There is no abdominal tenderness. There is no guarding. Comments: No hsm Musculoskeletal: General: No swelling, tenderness, deformity or signs of injury. Normal range of motion. Cervical back: Normal range of motion and neck supple. No rigidity. No muscular tenderness. Right lower leg: No edema. Left lower leg: No edema. Lymphadenopathy: Cervical: No cervical adenopathy. Skin: General: Skin is warm and dry. Capillary Refill: Capillary refill takes 2 to 3 seconds. Coloration: Skin is not jaundiced or pale. Findings: No bruising, erythema, lesion or rash. Neurological: General: No focal deficit present. Mental Status: He is alert and oriented to person, place, and time. Mental status is at baseline. GCS: GCS eye subscore is 4. GCS verbal subscore is 5. GCS motor subscore is 6. Cranial Nerves: No cranial nerve deficit. Motor: No weakness. Coordination: Coordination is intact. Gait: Gait normal. Psychiatric: Mood and Affect: Mood normal. Behavior: Behavior normal. Thought Content: Thought content normal. Judgment: Judgment normal. Procedure Notes Procedures Results Recent Results (from the past 168 hour(s)) COVID-19, Molecular Collection Time: 01/27/22 10:25 AM Specimen: Nasal; Swab Result Value Ref Range SARS-CoV-2 Not Detected Not Detected No orders to display Orders Placed This Visit Orders Placed This Encounter Procedures COVID-19, Molecular Medication List At End Of Visit Current Outpatient Medications Medication Sig Dispense Refill albuterol (Ventolin HFA) 90 mcg/actuation inhaler Inhale 2 (two) puffs every 6 (six) hours as needed for wheezing or shortness of breath . 18 g 5 budesonide-formoteroL (Symbicort) 160-4.5 mcg/actuation inhaler Inhale 2 (two) puffs 2 (two) times a day . 1 each 5 albuterol (PROVENTIL) 2.5 mg /3 mL (0.083 %) nebulizer solution Take 3 mL (2.5 mg total) by nebulization every 6 (six) hours as needed for wheezing . 75 mL 12 albuterol 90 mcg/actuation inhaler 1-2 puffs every 4-6 hours prn cough/wheeze/sob; dispense with spacer . 18 g 2 dextromethorphan-guaiFENesin (Mucinex DM) 30-600 mg Tb12 Take 1 (one) tablet by mouth 2 (two) timesa day for 10 days . 20 tablet 0 inhalational spacing device inhaler Use as instructed . 1 each 2 predniSONE (DELTASONE) 20 MG tablet Take 2 tablets once daily x 5 days with food . 10 tablet 0 No current facility-administered medications for this visit. Patient Instructions Melanie, Your covid test was negative today. PREDNISONE - NO NSAIDS OR ASA WITH THIS MED ALB + NEB MEDS - USE ONE OR THE OTHER MUCINEX dm VIT D3, C, ZINC, B COMPLEX, WATER, COUGH DROPS, REST. There is a possibility of false neg covid due to low viral load level -- repeat test at home in 2 days. If pos, return for updated work note, official test, and to see if you qualify for treatment. OTC cough/cold meds as needed, as directed; Tylenol for fever (if nauseated); motrin if not nauseated - as needed, as directed. Push fluids. Pedialyte. Rest. Any worsening cough, can't keep fluids down, shortness of breath, altered mental status, seizure, abd pain, or any other concerns - ER! Work note provided. GET BETTER!! documented in this [id number] Instructions* Patient Instructions* Hanane Talbert CNP - 01/17/2022 7:04 PM EDT Thank you for choosing [facility] for your healthcare needs today. No intercourse for 7 days. No unprotected intercourse. You will be contacted with results in 72 hours and given further instruction based on results. If GC will need test of cure in 7 to 14 days. If Chlamydia will need test of cure in 3 months. Your partner will need notification. If you are looking for further STD/HIV testing, this is available at the [facility] STD clinic. Good luck with smoking cessation. * Attachments The following attachments cannot be sent through Care Everywhere. * Urethritis (Peruvian) * Dysuria (Peruvian) documented in this [id number] History of Present illness Narrative* Hanane Talbert CNP - 01/17/2022 6:36 PM EDT Images from the original note were not included. Patient Name: [facility] Location: Melanie Lagos [address] [place] [id number] Date Of : Date Of Visit: 1990 01/17/2022 MRN# Provider: [id number] Hanane Talbert CNP Chief Complaint Patient presents with Exposure to STD Penile discharge, burning with urination, irritation throughout the day. Patient denies any lesionsor open sores to penis. Unsure of exposure to STD but would like a screening. Patient advised of help desk agent policy and agrees to help desk agent during exam. Assessment & Plan 1. Dysuria POC Urinalysis Dipstick,Auto UC Chlamydia/GC/Trichomonas Amplified RNA 2. Penile discharge Chlamydia/GC/Trichomonas Amplified RNA cefTRIAXone (ROCEPHIN) injection 500 mg doxycycline hyclate (VIBRAMYCIN) 100 MG capsule metroNIDAZOLE (FLAGYL) 500 MG tablet 3. Urethritis cefTRIAXone (ROCEPHIN) injection 500 mg doxycycline hyclate (VIBRAMYCIN) 100 MG capsule metroNIDAZOLE (FLAGYL) 500 MG tablet No follow-ups on file. Medical Decision Making Client is pleasant, non-toxic in NAD with report of dysuria and penile discharge for a week. Concern for STD. See H&P Urinalysis Urine STD Rocephin 500 mg IM Flagyl Doxycycline Additional Clinical Comments No intercourse for 7 days. No unprotected intercourse. You will be contacted with results in 72 hours and given further instruction based on results. If GC will need test of cure in 7 to 14 days. If Chlamydia will need test of cure in 3 months. Your partner will need notification. If you are looking for further STD/HIV testing, this is available at the [facility] STD clinic. Good luck with smoking cessation. Subjective 31 y.o. male presents with Exposure to STD (Penile discharge, burning with urination, irritation throughout the day. Patient denies any lesions or open sores to penis. Unsure of exposure to STD but would like a screening. Patient advised of help desk agent policy and agrees to help desk agent during exam. ) Client with report of penile discharge and burning with urination for a week. He states symptoms began about two days after having intercourse with his fiance. He is sexually active with one partner.He smokes a few cigars daily. Denies allergy to medications. Exposure to STD The patient's primary symptoms include penile discharge. The patient's pertinent negatives include no genital itching or genital lesions. This is a new problem. The current episode started in the past 7 days. The problem occurs constantly. The problem has been unchanged. The pain is mild. Associated symptoms include dysuria. Pertinent negatives include no fever, frequency, rash or urgency. Review Of Systems Review of Systems Constitutional: Negative for fever. Genitourinary: Positive for dysuria and penile discharge. Negative for frequency, genital sores, hematuria and urgency. Skin: Negative for rash. Medical History Past Medical History: Diagnosis Date Asthma Depression History reviewed. No pertinent surgical history. Patient Active Problem List Diagnosis Nicotine dependence Heartburn Anxiety disorder Lumbago Mild persistent asthma Social History Social History Tobacco Use Smoking status: Every Day Types: Cigars Smokeless tobacco: Never Tobacco comments: 3-4 Black Milds Vaping Use Vaping Use: Never used Substance Use Topics Alcohol use: Yes Comment: occasionally Drug use: No Family History History reviewed. No pertinent family history. Objective Physical Exam BP 135/82 (BP Location: Left arm, Patient Position: Sitting, BP Cuff Size: Adult) Pulse 62 Temp98.5 F (36.9 C) (Infrared) Resp 16 Ht 6' Wt 72.6 kg (160 lb) SpO2 96% BMI 21.70 kg/m Vision/Hearing Exam:No results found. Physical Exam Vitals and nursing note reviewed. Constitutional: Appearance: He is well-developed. HENT: Head: Normocephalic and atraumatic. Cardiovascular: Rate and Rhythm: Normal rate. Pulmonary: Effort: Pulmonary effort is normal. No respiratory distress. Genitourinary: Comments: Exam deferred. Skin: General: Skin is warm and dry. Neurological: General: No focal deficit present. Mental Status: He is alert. Psychiatric: Mood and Affect: Mood normal. Behavior: Behavior normal. Procedure Notes Procedures Results Recent Results (from the past 168 hour(s)) POC Urinalysis Dipstick,Auto UC Collection Time: 01/17/22 6:38 PM Result Value Ref Range POC Color, Urine Yellow Yellow, Light Yellow, Dark Yellow Clarity, UA Clear Clear Glucose, UA Negative Normal, Negative mg/dL Bilirubin, UA Negative Negative Ketones, UA Negative Negative mg/dL Spec Grav, UA 1.020 1.005 - 1.025 Blood, UA Negative Negative pH, UA 7.0 5.0 - 7.0 Protein, UA Negative Negative mg/dL Urobilinogen, UA 2.0 <2.0, 0.2, Normal, Negative, 1.0, 2.0, <1.0 mg/dL Nitrite, UA Negative Negative Leukocyte Esterase, UA Small (A) Negative No orders to display Orders Placed This Visit Orders Placed This Encounter Procedures Chlamydia/GC/Trichomonas Amplified RNA Chlamydia/Gonorrhoeae Amplified RNA Trichomonas vaginalis Amplified RNA POC Urinalysis Dipstick,Auto UC Medication List At End Of Visit Current Outpatient Medications Medication Sig Dispense Refill budesonide-formoteroL (Symbicort) 160-4.5 mcg/actuation inhaler Inhale 2 (two) puffs 2 (two) times a day . 1 each 5 mometasone-formoterol (Dulera) 200-5 mcg/actuation HFAA Inhale 2 puffs 2 (two) times a day . albuterol (Ventolin HFA) 90 mcg/actuation inhaler Inhale 2 (two) puffs every 6 (six) hours as needed for wheezing or shortness of breath . 18 g 5 doxycycline hyclate (VIBRAMYCIN) 100 MG capsule Take 1 (one) capsule (100 mg total) by mouth 2 (two) times a day for 7 days . 14 capsule 0 metroNIDAZOLE (FLAGYL) 500 MG tablet Take 4 (four) tablets (2,000 mg total) by mouth once for 1 dose . 4 tablet 0 Current Facility-Administered Medications Medication Dose Route Frequency Provider Last Rate Last Admin cefTRIAXone (ROCEPHIN) injection 500 mg 500 mg Intramuscular Once Hanane Talbert CNP Patient Instructions Thank you for choosing [facility] for your healthcare needs today. No intercourse for 7 days. No unprotected intercourse. You will be contacted with results in 72 hours and given further instruction based on results. If GC will need test of cure in 7 to 14 days. If Chlamydia will need test of cure in 3 months. Your partner will need notification. If you are looking for further STD/HIV testing, this is available at the [facility] STD clinic. Good luck with smoking cessation. documented in this [id number] History of Present illness Narrative* Marta Engel MD - 09/04/2021 10:22 AM EDT Images from the original note were not included. Patient Name: [facility] Location: Melanie Lagos [address] [place] [phone] Date Of : Date Of Visit: 1990 09/04/2021 MRN# Provider: [id number] Marta Engel MD Chief Complaint Patient presents with Back Pain Low back pain - pt states Pain radiates down LEFT side into buttocks/ upper leg-- HX of frequent sciatica Assessment & Plan 1. Acute left-sided low back pain with left-sided sciatica dexamethasone (DECADRON) injection 10 mg Return for Follow up with PCP. Medical Decision Making Likely acute on chronic back pain secondary to overuse/heavy lifting. Discussed treatment options. I do think and oral steroid taper would help him however he stated that he gets better relief with the steroid injection. Chart reviewed last injection with Decadron 10 mg. Will order per his request.I tried to discuss the benefits of stretching and therapy however patient cut me off and stated he doesn't have time for it. Additional Clinical Comments Discussed over the counter medications for symptomatic management and side effects of medications. Recommended taking all medications with food and to stop medications if they develop any signs of anallergic reaction. Educated patient and/or guardian about signs and symptoms that would warrant further immediate evaluation. Recommended that they should return to urgent care, make an appointment with their family physician, or go to the emergency room if symptoms persist or get acutely worse. Recommended follow upwithin the next week with their PCP or to get established with a PCP soon in order to follow up appropriately. Subjective 30 y.o. male presents with Back Pain (Low back pain - pt states Pain radiates down LEFT side into buttocks/ upper leg-- HX of frequent sciatica) Back pain- shooting pain with intermittent sharp pain down the left leg. Started years ago but mostrecent episode started on Monday. Yesterday tried soaking and heating pad but not better. Also takes ibuprofen, tylenol and muscle relaxers with no relief. Often times get a steroid injection which helps stop the pain. Worse pain when he goes to walk or stand. Review Of Systems Review of Systems Musculoskeletal: Positive for arthralgias and back pain. Skin: Negative for rash and wound. Neurological: Negative for weakness and numbness. Medical History Past Medical History: Diagnosis Date Asthma Depression History reviewed. No pertinent surgical history. Patient Active Problem List Diagnosis Nicotine dependence Heartburn Anxiety disorder Lumbago Mild persistent asthma Social History Social History Tobacco Use Smoking status: Current Every Day Smoker Packs/day: 1.00 Years: 12.00 Pack years: 12.00 Types: Cigars Smokeless tobacco: Never Used Tobacco comment: 3-4 Black Milds Vaping Use Vaping Use: Never used Substance Use Topics Alcohol use: No Drug use: No Family History History reviewed. No pertinent family history. Objective Physical Exam BP 133/86 Pulse 81 Temp 99.2 F (37.3 C) (Temporal) Resp 16 Ht 6' Wt 73.1 kg (161 lb 3.2 oz) SpO2 98% BMI 21.86 kg/m Vision/Hearing Exam:No exam data present Physical Exam Vitals reviewed. Constitutional: General: He is not in acute distress. Appearance: He is not ill-appearing. Cardiovascular: Rate and Rhythm: Normal rate. Pulmonary: Effort: Pulmonary effort is normal. No respiratory distress. Neurological: Mental Status: He is alert. Psychiatric: Attention and Perception: Attention normal. Mood and Affect: Mood normal. Speech: Speech normal. Behavior: Behavior is agitated. Procedure Note Procedures Orders Placed This Visit No orders of the defined types were placed in this encounter. Medication List At End Of Visit Current Outpatient Medications Medication Sig Dispense Refill albuterol (Ventolin HFA) 90 mcg/actuation inhaler Inhale 2 (two) puffs every 6 (six) hours as needed for wheezing or shortness of breath . 18 g 5 budesonide-formoteroL (Symbicort) 160-4.5 mcg/actuation inhaler Inhale 2 (two) puffs 2 (two) times a day . 1 each 5 mometasone-formoterol (Dulera) 200-5 mcg/actuation HFAA Inhale 2 puffs 2 (two) times a day . Current Facility-Administered Medications Medication Dose Route Frequency Provider Last Rate Last Admin dexamethasone (DECADRON) injection 10 mg 10 mg Intravenous Once Marta Engel MD There are no Patient Instructions on file for this visit. documented in this [id number] Emergency department Note* Dakota Park MD - 09/28/2020 2:14 AM EDT DEPARTMENT OF EMERGENCY MEDICINE CHIEF COMPLAINT Back Pain (to ED with c/o lower back pain for 3 days, patient states the pain radiates down left leg. Rates pain 10/10) CEDRIC Lagos is a 29 y.o. male who presents with atraumatic left low back pain that radiates down his left leg. It has been constant for a few days. It is now severe. No abdominal pain. No fevers or chills. No weakness. No loss of bowel or bladder control. Patient states he occasionally gets back pain secondary to a past injury playing football. REVIEW OF SYSTEMS Review of Systems See history of present illness. PAST MEDICAL HISTORY Past Medical History: Diagnosis Date Asthma SURGICAL HISTORY Past Surgical History: Procedure Laterality Date TONSILLECTOMY CURRENT MEDICATIONS Current Facility-Administered Medications Medication Dose Route Frequency Provider Last Rate Last Admin ibuprofen (MOTRIN) tablet 600 mg 600 mg Oral Once Dakota Park MD orphenadrine ER (NORFLEX) tablet SR 100 mg 100 mg Oral Once Daokta Park MD predniSONE (DELTASONE) tablet 40 mg 40 mg Oral Once Dakota Park MD Current Outpatient Medications Medication Sig Dispense Refill hydrOXYzine HCl 25 MG Tab tablet Take 1 tablet by mouth every 6 hours as needed for Anxiety. 16 tablet 0 polymyxin b-trimethoprim 48015-4.1 UNIT/ML-% Solution ophthalmic solution instill 1 drop into left eye every 4 to 6 hours while awake for 7 days 0 SYMBICORT 160-4.5 MCG/ACT Aerosol inhaler 0 ALLERGIES No Known Allergies FAMILY HISTORY History reviewed. No pertinent family history. SOCIAL HISTORY Social History Socioeconomic History Marital status: Single Spouse name: Not on file Number of children: Not on file Years of education: Not on file Highest education level: Not on file Occupational History Not on file Tobacco Use Smoking status: Current Every Day Smoker Packs/day: 0.50 Types: Cigarettes Smokeless tobacco: Never Used Substance and Sexual Activity Alcohol use: No Drug use: No Sexual activity: Not on file Other Topics Concern Not on file Social History Narrative Not on file Social Determinants of Health Financial Resource Strain: Difficulty of Paying Living Expenses: Not on file Food Insecurity: Worried About Running Out of Food in the Last Year: Not on file Ran Out of Food in the Last Year: Not on file Transportation Needs: Lack of Transportation (Medical): Not on file Lack of Transportation (Non-Medical): Not on file Physical Activity: Days of Exercise per Week: Not on file Minutes of Exercise per Session: Not on file Stress: Feeling of Stress : Not on file Social Connections: Frequency of Communication with Friends and Family: Not on file Frequency of Social Gatherings with Friends and Family: Not on file Attends Orthodox Services: Not on file Active Member of Clubs or Organizations: Not on file Attends Club or Organization Meetings: Not on file Marital Status: Not on file Intimate Partner Violence: Fear of Current or Ex-Partner: Not on file Emotionally Abused: Not on file Physically Abused: Not on file Sexually Abused: Not on file PHYSICAL EXAM BP 118/79 Pulse 81 Temp 98.2 F (36.8 C) (Oral) Resp 16 Ht 1.829 m (6') Wt 74.8 kg (165 lb) SpO2 98% BMI 22.38 kg/m Smoking Status Current Every Day Smoker Physical Exam The patient is well-developed, well-nourished, and in no acute distress. Head is atraumatic and normocephalic. Pupils are equal and reactive. Face is symmetric. Mucous membranes are moist. Neck is supple. Heart is regular rate and rhythm. Lungs are clear to auscultation. Abdomen is soft, nontender, nondistended. Patient some tenderness at the left SI joint. No midline tenderness. Skin is warm and dry. Extremities are warm and well perfused and without acute deformity. Neurologically, the patient is awake, alert, and without acute deficit. Psychiatrically, the patient is calm and cooperative. ED COURSE & MEDICAL DECISION MAKING Abdomen soft and nontender. No concerning elements to his history or physical exam. He is neurologically intact. He does have history and exam consistent with sciatica. He will be started on prednisone, Motrin, Norflex. He will be referred for follow-up. He is in agreement with this plan of care. Dakota Park MD 09/28/20 0216 [facility] Diagnosis Sciatica of left side- Primary Sciatica documented [facility]* Diagnosis Acute left-sided low back pain with left-sided sciatica- Primary documented in this encounter [facility] note* Diagnosis Dysuria- Primary Penile discharge Urethral discharge Urethritis Unspecified urethritis documented in this encounter [facility] note* Diagnosis Suspected COVID-19 virus infection- Primary Cough Chest tightness Other chest pain Asthma, unspecified asthma severity, unspecified whether complicated, unspecified whether persistent Runny nose Other diseases of nasal cavity and sinuses Lab test negative for COVID-19 virus [facility]* Diagnosis Right hand pain- Primary Pain in soft tissues of limb [facility]* Diagnosis 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 Finger pain, right Pain in soft tissues of limb Closed nondisplaced fracture of distal phalanx of right little finger, initial encounter [facility]* Diagnosis Mild intermittent asthma without complication- Primary Anxiety disorder, unspecified type Anxiety disorder, unspecified type- Primary Cocaine abuse (HCC) Nondependent cocaine abuse, unspecified Exposure to hepatitis C Contact with or exposure to other viral diseases [facility]No assessment information [facility]WH[facility] Work Phone: Evaluation note* Diagnosis Onset Date Resolution Status Admit Date Nicotine dependence, cigaret rip, uncomplicated acute December 16, 2024 11:12am Asthma chronic December 16 11:12am [facility] Work Phone: Hospital Discharge instructions* Attachments The following attachments cannot be sent through Care Everywhere. * Sciatica (Peruvian) [facility] Ambulatory Orders* Allergy & Immunology Location: None Selected [facility] Work Phone: Instructions* Attachments The following attachments cannot be sent through Care Everywhere. 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 Mchugh; review of electronic medical record; and case review with Dr. Thong Moya. Spent balance of visit adjusting the treatment plan as indicated and coordination of the same. Diagnoses; Major Depression, recurrent, severe Polysubstance abuse Collaborating Physician: Assessment and Plan Diagnosis. Plan: 1. Patient brought to the hospital yesterday by his sister due to worsening depression. Unsure if sister knows about suicide attempts. Patient reported he cut his wrist a month ago but it clotted off too soon to work. On 08/17 put a loaded gun t (more content not included)... Note EMERGENCY DEPARTMENT DISCHAR GE SUMMARY PATIENT NAME:MELANIE LAGOS MRN: [facility])-[id number] AGE: 29 Years SEX: Male PHONE:[phone] DOS: 08/20/2020 10:42:00 : 1990 ATTENDING PHYSICIAN:Ambrose Gagnon MD PCP: Physician, PCP Unknown CHIEF COMPLAINT: SI Allergies No Known Medication Allergies Problems No Problems Documented DISCHARGE DIAGNOSIS: DISCHARGE INSTRUCTIONS: ED PHYSICIAN DOCUMENTATION: History of Present Illness The patient is a 29 yo male with a history of bipolar who presents with depression and SI. He has been having depressive symptoms for months, worse recently. On arrival he is tearful, has feeling of worthlessness, has suicidal thoughts and a plan. He reached out to his sister today who came with him to the ED. Social history: Patient is a nonsmoker Medical Decision Making Notes: I saw and evaluated the patient. I have reviewed the chief complaint, triage note, past medical/surgical, family, and social history. The patient's old medical records have been (more content not included)... Hospital Course Note EMERGENCY DEPARTMENT DISCHAR GE SUMMARY PATIENT NAME:MELANIE LAGOS MRN: [facility])-[id number] AGE: 29 Years SEX: Male PHONE:[phone] DOS: 08/20/2020 10:42:00 : 1990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
[2025-04-15 04:19] VITALS: BP 130/89; PULSE 66; RESP 16; TEMP 36.6; O2SAT 98
== END 2025-04-15 04:31 | disposition home or self-care (01) ==
LOC: ED 04:13
PROVIDERS: Emergency Provider Emergency Medicine; PCP Family Medicine; Visit Provider Emergency Medicine
DX: K02.9 Dental caries, unspecified (principal); S02.5XXA Fracture of tooth (traumatic), initial encounter for closed fracture; Z79.899 Other long term (current) drug therapy; F17.210 Nicotine dependence, cigarettes, uncomplicated; X58.XXXA Exposure to other specified factors, initial encounter
CPT/HCPCS: 99282